=== PATIENT | male | born 1990 | race Caucasian/White ===

== ENCOUNTER 2017-06-19 10:55 | Inpatient (IN) | payer OTHER ==
[2017-06-19 12:43] VITALS: BMI 43.2
--- NOTE | 2017-06-19 13:16 | HP ---
CIWA Score - CIWA Score Nausea/Vomitin Muscle Tremors: 3 Anxiety: 3 Agitation: 3 Paroxysmal Sweats: 2 Orientation: 0-Oriented Tacttile Disturbances: 2-Mild Itch/Numbness/Burn Auditory Disturbances: 2-Mild Harshness/Frighten Visual Disturbances: 1-Very Mild Sensitivity Headache: 2-Mild CIWA-Ar Total Score: 21 Admission ROS BHS - HPI Chief Complaint: I NEED HELP TO STOP DRINKING ALCOHOL Allergies/Adverse Reactions: Allergies Allergy/AdvReac Type Severity Reaction Status Date / Time onion Allergy Verified 06/19/17 13:13 pepper Allergy Verified 06/19/17 13:12 History of Present Illness: THIS 27 YEARS OLD MALE WITH ALCOHOL DEPENDENCE,WITHDRAWAL SYMPTOM,SEEKING DETOX, NEVER BEEN IN TREATMENT BEFORE NO SIGNIFICANT PERIOD OF SOBRIETY ANXIETY AND DEPRESSION Exam Limitations: No Limitations - Ebola screening Have you traveled outside of the country in the last 21 days: No Have you had contact with anyone from an Ebola affected area: No Have you been sick,other than usual withdrawal symptoms: No Do you have a fever: No - Review of Systems Constitutional: Loss of Appetite, Malaise, Night Sweats, Changes in sleep, Weakness EENT: reports: Nose Congestion Respiratory: reports: Other (ASTHMA) Cardiac: reports: No Symptoms Reported GI: reports: Diarrhea, Nausea, Vomiting, Abdominal cramping Musculoskeletal: reports: Back Pain, Muscle Pain Integumentary: reports: Dryness Neuro: reports: Headache, Tremors Endocrine: reports: No Symptoms Reported Hematology: reports: No Symptoms Reported Psychiatric: reports: Anxious, Depressed Patient History - Patient Medical History Hx Anemia: No Hx Asthma: Yes (ON ALBUTEROL INHALER) Hx Chronic Obstructive Pulmonary Disease (COPD): No Hx Cancer: No Hx Cardiac Disorders: No Hx Congestive Heart Failure: No Hx Hypertension: No Hx Hypercholesterolemia: No Hx Pacemaker: No HX Cerebrovascular Accident: No Hx Seizures: No Hx Dementia: No Hx Diabetes: No Hx Gastrointestinal Disorders: No Hx Liver Disease: No Hx Genitourinary Disorders: No Hx Sexually Transmitted Disorders: No Hx Renal Disease (ESRD): No Hx Thyroid Disease: No Hx Human Immunodeficiency Virus (HIV): No (LAST IN 2017 NEGATIVE) Hx Depression: Yes (ANXIETY) Hx Suicide Attempt: No Hx Bipolar Disorder: No Hx Schizophrenia: No Other Medical History: NO SUICIDAL,NO HOMICIDAL,CHRONIC LOW BACK PAIN - Patient Surgical History Past Surgical History: Yes Hx Orthopedic Surgery: Yes (LEFT AKLE FRACTURE AGE OF 14) - PPD History Previous Implant?: Yes Documented Results: Negative w/o proof Implanted On Prior [facility] Admission?: No PPD to be Administered?: Yes - Smoking Cessation Smoking history: Never smoked - Substance & Tx. History Hx Alcohol Use: Yes Hx Substance Use: No Substance Use Type: Alcohol Hx Substance Use Treatment: No - Substances Abused Alcohol Route: Oral Frequency: Daily Amount used: 1PINT OF BLUE AND VODKA/2 OF 24 OZS OF BEER Age of first use: 14 Date of Last Use: 06/18/17 Family Disease History - Family Disease History Family Disease History: Other: Father (ALCOHOL,DSA) Admission Physical Exam [facility] - Vital Signs Vital Signs: Vital Signs - 24 hr 06/19/17 12:42 Temperature 95.6 F L Pulse Rate 86 Respiratory 18 Rate Blood Pressure 123/82 - Physical General Appearance: Yes: Moderate Distress, Tremorous, Irritable, Sweating, Anxious HEENTM: Yes: Normal ENT Inspection, [place], Pharynx Normal Respiratory: Yes: Lungs Clear, Normal Breath Sounds, No Respiratory Distress Neck: Yes: Within Normal Limits Breast: Yes: Within Normal Limits Cardiology: Yes: Within Normal Limits, Regular Rhythm, Regular Rate, S1, S2 Abdominal: Yes: Within Normal Limits, Normal Bowel Sounds, Non Tender, Flat, Soft Genitourinary: Yes: Within Normal Limits Back: Yes: Muscle Spasm Musculoskeletal: Yes: Back pain, Muscle Pain Extremities: Yes: Normal Capillary Refill, Normal Inspection, Normal Range of Motion Neurological: Yes: Within Normal Limits, accessories repairer II-XII NML intact, Fully Oriented, Alert, Motor Strength 5/5 Integumentary: Yes: Dry Lymphatic: Yes: Within Normal Limits - Diagnostic (1) Alcohol dependence with uncomplicated withdrawal Current Visit: Yes Status: Acute (2) Asthma Current Visit: Yes Status: Acute (3) Depression Current Visit: Yes Status: Acute Cleared for Admission [facility] - Detox or Rehab [facility] Level of Care: Medically Managed Detox Regimen/Protocol: Librium [facility] Breath Alcohol Content Breath Alcohol Content: 0 Urine Drug Screen - Results Drug Screen Negative: No Urine Drug Screen Results: OPI-Opiates, BZO-Benzodiazepines, TCA-Tricyclic Antidepress
[2017-06-19] MEDS ORDERED: MENTHOL/PHENOL 1 EACH UD MM PRN (13:28)
[2017-06-19] MEDS ORDERED: P-EPHED 60MG/TRIPROLIDI 2.5MG TABLET PO PRN (13:28)
[2017-06-19] MEDS ORDERED: ACETAMINOPHEN 325 MG TABLET (FP) PO PRN (13:28)
[2017-06-19] MEDS ORDERED: MAG HYDROX/AL HYDROX/SIMETH 30 ML UNIT-DOSE CUP PO PRN (13:28)
[2017-06-19] MEDS ORDERED: MAGNESIUM HYDROX 2400MG/30ML ORAL SUSPENSION 30 ML CUP PO PRN (13:28)
[2017-06-19] MEDS ORDERED: LOPERAMIDE HCL 2 MG CAPSULE PO PRN (13:28)
[2017-06-19] MEDS ORDERED: MAGNESIUM CITRATE 300 ML BOTTLE PO PRN (13:28)
[2017-06-19] MEDS ORDERED: guaiFENesin/D-METHORPHAN HB 10 ML UNIT-DOSE CUPS PO PRN (13:28)
[2017-06-19] MEDS ORDERED: chlordiazePOXIDE HCL 25 MG CAPSULE PO ONE ×2 (13:28→15:45)
[2017-06-19] MEDS ORDERED: chlordiazePOXIDE HCL 25 MG CAPSULE PO PRN (13:28)
[2017-06-19 16:32] LABS: URINE APPEARANCE CLEAR; URINE BILIRUBIN NEGATIVE (NEGATIVE); URINE BLOOD NEGATIVE (NEGATIVE); URINE COLOR YELLOW; URINE GLUCOSE (UA) NEGATIVE (NEGATIVE); URINE KETONE NEGATIVE (NEGATIVE); URINE LEUK ESTERASE NEGATIVE (NEGATIVE); URINE NITRITE NEGATIVE (NEGATIVE); URINE PROTEIN NEGATIVE (NEGATIVE); URINE UROBILINOGEN NEGATIVE mg/dL (0.2-1.0)
[2017-06-19] MEDS: chlordiazePOXIDE HCL 25 MG CAPSULE PO SCH ×2 (17:51→22:05)
[2017-06-19] MEDS: THIAMINE HCL 100 MG TABLET (FP) PO SCH (22:05)
[2017-06-20] MEDS: hydrOXYzine PAMOATE 50 MG CAPSULE (FP) PO PRN ×2 (01:19→16:42)
[2017-06-20] MEDS: chlordiazePOXIDE HCL 25 MG CAPSULE PO SCH ×4 (06:21→22:07)
[2017-06-20 10:00] LABS: HEMATOCRIT 45.1 % (35.4-49); HEMOGLOBIN 14.9 GM/dL (11.7-16.9); MCH 31.6 pg (25.7-33.7); MEAN CELL VOLUME 95.8 fl (80-96); PLATELET COUNT 204 K/MM3 (134-434); RBC 4.71 M/mm3 (4.00-5.60); RDW 13.2 % (11.9-15.9); WHITE BLOOD COUNT 5.4 K/mm3 (4.0-10.0)
[2017-06-20] MEDS: PRENATAL VITAMINS W/ FOLIC ACID TABLET (FP) PO SCH (10:17)
[2017-06-20 10:22] LABS: ALBUMIN 3.1 g/dl (3.4-5.0); ANION GAP 7 (8-16); BLOOD UREA NITROGEN 14 mg/dL (7-18); CALCIUM 7.9 mg/dL (8.5-10.1); CHLORIDE 105 mmol/L (98-107); CO2 27 mmol/L (21-32); GLUCOSE,RANDOM 86 mg/dL (74-106); POTASSIUM 4.2 mmol/L (3.5-5.1); SODIUM 139 mmol/L (136-145)
[2017-06-20 10:25] LABS: ALK PHOS 83 U/L (45-117); BILIRUBIN,TOTAL 0.4 mg/dL (0.2-1.0); CREATININE 0.8 mg/dL (0.7-1.3); SGOT/AST 23 U/L (15-37); SGPT/ALT 67 U/L (12-78); TOT PROT 6.8 g/dl (6.4-8.2)
--- NOTE | 2017-06-20 10:38 | EKG ---
Test Reason : Blood Pressure : / mmHG Vent. Rate : 079 BPM Atrial Rate : 079 BPM P-R Int : 144 ms QRS Dur : 086 ms QT Int : 370 ms P-R-T Axes : 056 023 023 degrees QTc Int : 424 ms NORMAL SINUS RHYTHM NORMAL ECG NO PREVIOUS ECGS AVAILABLE Confirmed by PERRY DE LA FUENTE MD ([id number]) on 06/20/2017 10:38:36 AM Referred By: Confirmed By:PERRY DE LA FUENTE MD
--- NOTE | 2017-06-20 10:48 | PN ---
S CIWA - CIWA Score Nausea/Vomitin Muscle Tremors: 3 Anxiety: 3 Agitation: 3 Paroxysmal Sweats: 1-Minimal Palms Moist Orientation: 0-Oriented Tacttile Disturbances: 1-Very Mild Itch/Numbness Auditory Disturbances: 1-Very Mild Visual Disturbances: 0-None Headache: 2-Mild CIWA-Ar Total Score: 17 BHS Progress Note (SOAP) Subjective: ALERT,IRRITABLE,ANXIOUS,INTERRUPTED SLEEP,TREMOR Objective: 06/20/17 10:46 Vital Signs Temperature 97.2 F L 06/20/17 06:00 Pulse Rate 78 06/20/17 06:00 Respiratory Rate 18 06/20/17 06:00 Blood Pressure 110/64 06/20/17 06:00 O2 Sat by Pulse Oximetry (%) EKG NSR,NORMAL ECG Laboratory Last Values WBC 5.4 K/mm3 (4.0-10.0) 06/20/17 07:30 RBC 4.71 M/mm3 (4.00-5.60) 06/20/17 07:30 Hgb 14.9 GM/dL (11.7-16.9) 06/20/17 07:30 Hct 45.1 % (35.4-49) 06/20/17 07:30 MCV 95.8 fl (80-96) 06/20/17 07:30 MCH 31.6 pg (25.7-33.7) 06/20/17 07:30 MCHC 33.0 g/dl (32.0-35.9) 06/20/17 07:30 RDW 13.2 % (11.9-15.9) 06/20/17 07:30 Plt Count 204 K/MM3 (134-434) 06/20/17 07:30 MPV 8.0 fl (7.5-11.1) 06/20/17 07:30 Sodium 139 mmol/L (136-145) 06/20/17 07:30 Potassium 4.2 mmol/L (3.5-5.1) 06/20/17 07:30 Chloride 105 mmol/L (98-107) 06/20/17 07:30 Carbon Dioxide 27 mmol/L (21-32) 06/20/17 07:30 Anion Gap 7 (8-16) L 06/20/17 07:30 BUN 14 mg/dL (7-18) 06/20/17 07:30 Creatinine 0.8 mg/dL (0.7-1.3) 06/20/17 07:30 Creat Clearance w eGFR > 60 (>60) 06/20/17 07:30 Random Glucose 86 mg/dL (74-106) 06/20/17 07:30 Calcium 7.9 mg/dL (8.5-10.1) L 06/20/17 07:30 Total Bilirubin 0.4 mg/dL (0.2-1.0) 06/20/17 07:30 AST 23 U/L (15-37) 06/20/17 07:30 ALT 67 U/L (12-78) 06/20/17 07:30 Alkaline Phosphatase 83 U/L (45-117) 06/20/17 07:30 Total Protein 6.8 g/dl (6.4-8.2) 06/20/17 07:30 Albumin 3.1 g/dl (3.4-5.0) L 06/20/17 07:30 Urine Color Yellow 06/19/17 15:41 Urine Appearance Clear 06/19/17 15:41 Urine pH 6.0 (5.0-8.0) 06/19/17 15:41 Ur Specific [place] 1.018 (1.001-1.035) 06/19/17 15:41 Urine Protein Negative (NEGATIVE) 06/19/17 15:41 Urine Glucose (UA) Negative (NEGATIVE) 06/19/17 15:41 Urine Ketones Negative (NEGATIVE) 06/19/17 15:41 Urine Blood Negative (NEGATIVE) 06/19/17 15:41 Urine Nitrite Negative (NEGATIVE) 06/19/17 15:41 Urine Bilirubin Negative (NEGATIVE) 06/19/17 15:41 Urine Urobilinogen Negative mg/dL (0.2-1.0) 06/19/17 15:41 Ur Leukocyte Esterase Negative (NEGATIVE) 06/19/17 15:41 06/20/17 10:47 LAB PENDING Assessment: 06/20/17 10:48 WITHDRAWAL SYMPTOM Plan: CONTINUE DETOX
--- NOTE | 2017-06-20 12:31 | CONSULT ---
[facility] Psychiatric Consult - Data Date of interview: 06/20/17 Admission source: [facility] Identifying data: This is 27 years old H single male, father of 2,homeless admitted for Opioid and Alcohol dependence. Substance Abuse History: Patient reports drinking since 14 years old,currently 1 pint of Sheryl daily,TRamadol on and off. Medical History: Psychiatric History: Patient reports some anxiety on and off,specially now related to his current situations (being in detox,breaking up with girlfriend) .He also reports some sleeping difficulties.No previous psychiatric admissions, no suicidal ideas. Physical/Sexual Abuse/Trauma History: denies Mental Status Exam - Mental Status Exam Alert and Oriented to: Time, Place, Person Cognitive Function: Grossly Intact Patient Appearance: Unkempt Mood: Sad Affect: Labile Patient Behavior: Appropriate, Cooperative Speech Pattern: Clear Voice Loudness: Normal Thought Process: Goal Oriented Thought Disorder: Not Present Hallucinations: Denies Suicidal Ideation: Denies Homicidal Ideation: Denies Insight/Judgement: Fair Sleep: Fair Appetite: Fair Muscle strength/Tone: Normal Gait/Station: Normal Psychiatric Findings - Problem List ([place] 1, 2,3) (1) Asthma Current Visit: Yes Status: Chronic (2) Alcohol-induced mood disorder Current Visit: Yes Status: Chronic - Initial Treatment Plan Initial Treatment Plan: Vistaril 50 mg po qid prn for anxiety,Benadryl 100 mg po hs prn for insomnia.
[2017-06-20] MEDS ORDERED: diphenhydrAMINE HCL 50 MG CAPSULE PO PRN (12:40)
[2017-06-20] MEDS: THIAMINE HCL 100 MG TABLET (FP) PO SCH (22:07)
[2017-06-20] MEDS ORDERED: ALBUTEROL SO4 0.083% IH SOL 2.5 MG/3 ML VIAL.NEB. NEB PRN (23:44)
[2017-06-20] MEDS ORDERED: ALBUTEROL SO4 18 GM HFA INHALER IH PRN ×2 (23:45)
[2017-06-21] MEDS: hydrOXYzine PAMOATE 50 MG CAPSULE (FP) PO PRN (01:34)
[2017-06-21] MEDS: chlordiazePOXIDE HCL 25 MG CAPSULE PO SCH ×2 (05:11→10:11)
[2017-06-21] MEDS: BUDESONIDE/FORMETEROL FUMARATE 80/4.5 mcg INHALER IH SCH ×3 (08:20→22:10)
[2017-06-21] MEDS: PRENATAL VITAMINS W/ FOLIC ACID TABLET (FP) PO SCH (10:10)
[2017-06-21] MEDS: IBUPROFEN 400 MG TABLET (FP) PO PRN (11:01)
--- NOTE | 2017-06-21 11:26 | PN ---
S CIWA - CIWA Score Nausea/Vomitin Muscle Tremors: 4-Moderate,w/Arms Extend Anxiety: 3 Agitation: 0-Normal Activity Paroxysmal Sweats: 3 Orientation: 0-Oriented Tacttile Disturbances: 0-None Auditory Disturbances: 0-None Visual Disturbances: 0-None Headache: 0-None Present CIWA-Ar Total Score: 13 BHS Progress Note (SOAP) Subjective: Interrupted sleep, chills / shakes, nausea, sweats Objective: 06/21/17 11:23 Last Vital Signs Temp Pulse Resp BP Pulse Ox 96.8 F L 87 20 127/85 06/21/17 10:12 06/21/17 10:12 06/21/17 10:12 06/21/17 10:12 Laboratory Last Values WBC 5.4 K/mm3 (4.0-10.0) 06/20/17 07:30 RBC 4.71 M/mm3 (4.00-5.60) 06/20/17 07:30 Hgb 14.9 GM/dL (11.7-16.9) 06/20/17 07:30 Hct 45.1 % (35.4-49) 06/20/17 07:30 MCV 95.8 fl (80-96) 06/20/17 07:30 MCH 31.6 pg (25.7-33.7) 06/20/17 07:30 MCHC 33.0 g/dl (32.0-35.9) 06/20/17 07:30 RDW 13.2 % (11.9-15.9) 06/20/17 07:30 Plt Count 204 K/MM3 (134-434) 06/20/17 07:30 MPV 8.0 fl (7.5-11.1) 06/20/17 07:30 Sodium 139 mmol/L (136-145) 06/20/17 07:30 Potassium 4.2 mmol/L (3.5-5.1) 06/20/17 07:30 Chloride 105 mmol/L (98-107) 06/20/17 07:30 Carbon Dioxide 27 mmol/L (21-32) 06/20/17 07:30 Anion Gap 7 (8-16) L 06/20/17 07:30 BUN 14 mg/dL (7-18) 06/20/17 07:30 Creatinine 0.8 mg/dL (0.7-1.3) 06/20/17 07:30 Creat Clearance w eGFR > 60 (>60) 06/20/17 07:30 Random Glucose 86 mg/dL (74-106) 06/20/17 07:30 Calcium 7.9 mg/dL (8.5-10.1) L 06/20/17 07:30 Total Bilirubin 0.4 mg/dL (0.2-1.0) 06/20/17 07:30 AST 23 U/L (15-37) 06/20/17 07:30 ALT 67 U/L (12-78) 06/20/17 07:30 Alkaline Phosphatase 83 U/L (45-117) 06/20/17 07:30 Total Protein 6.8 g/dl (6.4-8.2) 06/20/17 07:30 Albumin 3.1 g/dl (3.4-5.0) L 06/20/17 07:30 Urine Color Yellow 06/19/17 15:41 Urine Appearance Clear 06/19/17 15:41 Urine pH 6.0 (5.0-8.0) 06/19/17 15:41 Ur Specific [place] 1.018 (1.001-1.035) 06/19/17 15:41 Urine Protein Negative (NEGATIVE) 06/19/17 15:41 Urine Glucose (UA) Negative (NEGATIVE) 06/19/17 15:41 Urine Ketones Negative (NEGATIVE) 06/19/17 15:41 Urine Blood Negative (NEGATIVE) 06/19/17 15:41 Urine Nitrite Negative (NEGATIVE) 06/19/17 15:41 Urine Bilirubin Negative (NEGATIVE) 06/19/17 15:41 Urine Urobilinogen Negative mg/dL (0.2-1.0) 06/19/17 15:41 Ur Leukocyte Esterase Negative (NEGATIVE) 06/19/17 15:41 RPR Titer Nonreactive (NONREACTIVE) 06/20/17 07:30 labs noted Assessment: 06/21/17 11:26 withdrawal symptoms Plan: continue detox Increase fluids Continue to monitor
[2017-06-21] MEDS: chlordiazePOXIDE 5 MG CAPSULE PO SCH ×2 (17:32→22:10)
--- NOTE | 2017-06-21 17:38 | PN ---
Psychiatric Progress Note Vital Signs: Vital Signs Period Temp Pulse Resp BP Sys/Patel Pulse Ox Last 24 Hr 96.8 F-97.7 F 82-98 16-20 119-156/72-90 Date of Session: 06/21/17 Chief Complaint:: " Benadryl is not helping me sleep." HPI: Pt is a 27 years single male, father of two ,homeless, and admitted for Opioid and Alcohol dependence. ROS: Unremarkable. Current Medications: Active Medications Generic Name Dose Route Start Last Admin Trade Name Freq PRN Reason Stop Dose Admin Acetaminophen 650 mg 06/19/17 13:28 06/20/17 01:19 Tylenol - PO 650 mg Q4H PRN Administration FEVER Al Hydroxide/Mg Hydroxide 30 ml 06/19/17 13:28 Mylanta Oral Suspension - PO Q6H PRN DYSPEPSIA Albuterol Sulfate 1 amp 06/20/17 23:44 Ventolin 0.083% Nebulizer Soln - NEB Q6H PRN SHORT OF BREATH/WHEEZING Albuterol Sulfate 2 puff 06/20/17 23:45 Ventolin Hfa Inhaler - IH Q4H PRN ASTHMA Budesonide/Formoterol Fumarate 2 puff 06/20/17 23:45 06/21/17 10:11 Symbicort 80/4.5mcg - IH 2 inh BID AUBREE Administration Chlordiazepoxide HCl 15 mg 06/21/17 17:00 06/21/17 17:32 Librium - PO 06/22/17 11:01 15 mg [id number] AUBREE Administration Chlordiazepoxide HCl 25 mg 06/19/17 13:28 Librium - PO 06/22/17 13:27 Q4H PRN WITHDRAWAL(CONT SUBST) Chlordiazepoxide HCl 10 mg 06/22/17 17:00 Librium - PO 06/23/17 11:01 [id number] AUBREE Diphenhydramine HCl 100 mg 06/20/17 12:40 06/20/17 22:07 Benadryl - PO 100 mg DAILY PRN Administration INSOMNIA Eucalyptus/Menthol/Phenol/Sorbitol 1 each 06/19/17 13:28 Cepastat Lozenge - MM Q4H PRN SORE THROAT Guaifenesin 10 ml 06/19/17 13:28 Robitussin Dm - PO Q6H PRN COUGH Hydroxyzine Pamoate 50 mg 06/19/17 13:28 06/21/17 01:34 Vistaril - PO 50 mg Q4H PRN Administration AGITATION Ibuprofen 400 mg 06/19/17 13:28 06/21/17 11:01 Motrin - PO 400 mg Q6H PRN Administration PAIN LEVEL 4-6 Loperamide HCl 4 mg 06/19/17 13:28 Imodium - PO Q6H PRN DIARRHEA Magnesium Citrate 300 ml 06/19/17 13:28 Citroma - PO Q48H PRN CONSTIPATION Magnesium Hydroxide 30 ml 06/19/17 13:28 Milk Of Magnesia - PO DAILY PRN CONSTIPATION Multivit/Folic Acid/Iron 1 tab 06/20/17 10:00 06/21/17 10:10 Vitamins (Sjr) - PO 1 tab DAILY AUBREE Administration Pseudoephedrine/Triprolidine 1 combo 06/19/17 13:28 Actifed - PO TID PRN NASAL CONGESTION Thiamine HCl 100 mg 06/19/17 22:00 06/20/17 22:07 Vitamin B1 - PO 100 mg HS AUBREE Administration Medication(s) Change(s): Yes. Ambien 10mg qhs PRN. D/C benadryl 100mg prn Current Side Effect: No Lab tests ordered: No Lab tests reviewed: Yes Provider note:: Industrial Safety And Health Technician approached patient concering psychiatric reconsultation. Pt. requesting a different sleep aid. Stating benadryl 100mg has not improved his insomnia. Pt. reports favorable effect from previously taking ambien Ambien 10mg. Ambien 10mg qhs prn ordered. Benefits and side effects (sleep walking) discussed. Verbal consent given. Will continue to monitor. Total face to face time:: 15 Mental Status Exam - Mental Status Exam Alert and Oriented to: Time, Place, Person Cognitive Function: Good Patient Appearance: Unkempt Mood: Hopeful Affect: Mood Congruent Patient Behavior: Appropriate, Cooperative Speech Pattern: Appropriate Voice Loudness: Normal Thought Process: Goal Oriented Thought Disorder: Not Present Hallucinations: Denies Suicidal Ideation: Denies Homicidal Ideation: Denies Insight/Judgement: Poor Sleep: Poorly Appetite: Good Muscle strength/Tone: Normal Gait/Station: Normal Psychiatric Treatment Plan - Problem List (1) Alcohol dependence with uncomplicated withdrawal Current Visit: Yes (2) Insomnia Current Visit: Yes
[2017-06-21] MEDS: ZOLPIDEM TARTRATE 10 MG TABLET (PARK CARE ONLY) PO PRN (22:10)
[2017-06-21] MEDS: THIAMINE HCL 100 MG TABLET (FP) PO SCH (22:10)
[2017-06-22] MEDS: hydrOXYzine PAMOATE 50 MG CAPSULE (FP) PO PRN ×2 (02:06→12:29)
[2017-06-22] MEDS: chlordiazePOXIDE 5 MG CAPSULE PO SCH ×2 (05:26→10:12)
--- NOTE | 2017-06-22 09:52 | PN ---
BHS Progress Note (SOAP) Subjective: interrupted sleep, sweats, lbp Objective: 06/22/17 09:48 Vital Signs Temperature 97.5 F L 06/22/17 07:02 Pulse Rate 87 06/22/17 07:02 Respiratory Rate 06/22/17 07:02 Blood Pressure 120/71 06/22/17 07:02 O2 Sat by Pulse Oximetry (%) Vital Signs Temperature 97.5 F L 06/22/17 07:02 Pulse Rate 87 06/22/17 07:02 Respiratory Rate 06/22/17 07:02 Blood Pressure 120/71 06/22/17 07:02 O2 Sat by Pulse Oximetry (%) Laboratory Tests 06/19/17 06/20/17 06/20/17 15:41 07:30 07:30 WBC 5.4 RBC 4.71 Hgb 14.9 Hct 45.1 MCV 95.8 MCH 31.6 MCHC 33.0 RDW 13.2 Plt Count 204 MPV 8.0 Sodium 139 Potassium 4.2 Chloride 105 Carbon Dioxide 27 Anion Gap 7 L BUN 14 Creatinine 0.8 Creat Clearance w eGFR > 60 Random Glucose 86 Calcium 7.9 L Total Bilirubin 0.4 AST 23 ALT 67 Alkaline Phosphatase 83 Total Protein 6.8 Albumin 3.1 L Urine Color Yellow Urine Appearance Clear Urine pH 6.0 Ur Specific [place] 1.018 Urine Protein Negative Urine Glucose (UA) Negative Urine Ketones Negative Urine Blood Negative Urine Nitrite Negative Urine Bilirubin Negative Urine Urobilinogen Negative Ur Leukocyte Esterase Negative RPR Titer 06/20/17 07:30 WBC RBC Hgb Hct MCV MCH MCHC RDW Plt Count MPV Sodium Potassium Chloride Carbon Dioxide Anion Gap BUN Creatinine Creat Clearance w eGFR Random Glucose Calcium Total Bilirubin AST ALT Alkaline Phosphatase Total Protein Albumin Urine Color Urine Appearance Urine pH Ur Specific [place] Urine Protein Urine Glucose (UA) Urine Ketones Urine Blood Urine Nitrite Urine Bilirubin Urine Urobilinogen Ur Leukocyte Esterase RPR Titer Nonreactive pt aox3 in nad ambulating Assessment: 06/22/17 09:51 withdrawal sxs Plan: cont detox increase fluids d/c in am
[2017-06-22] MEDS: PRENATAL VITAMINS W/ FOLIC ACID TABLET (FP) PO SCH (10:12)
[2017-06-22] MEDS: BUDESONIDE/FORMETEROL FUMARATE 80/4.5 mcg INHALER IH SCH ×2 (10:12→22:22)
[2017-06-22] MEDS: IBUPROFEN 400 MG TABLET (FP) PO PRN (12:30)
[2017-06-22] MEDS: chlordiazePOXIDE HCL 10 MG CAPSULE PO SCH ×2 (17:36→22:13)
[2017-06-22] MEDS: THIAMINE HCL 100 MG TABLET (FP) PO SCH (22:13)
[2017-06-22] MEDS: ZOLPIDEM TARTRATE 10 MG TABLET (PARK CARE ONLY) PO PRN (22:15)
[2017-06-23] MEDS: hydrOXYzine PAMOATE 50 MG CAPSULE (FP) PO PRN (01:47)
[2017-06-23 06:12] VITALS: BP 105/59; PULSE 80; TEMP 97.7
[2017-06-23] MEDS: chlordiazePOXIDE HCL 10 MG CAPSULE PO SCH (06:24)
--- NOTE | 2017-06-23 08:43 | DS ---
[facility] Detox Discharge Summary Admission Date: 06/19/17 Discharge Date: 06/23/17 - History Present History: Alcohol Dependence - Physical Exam Results Vital Signs: Vital Signs Temperature 97.7 F 06/23/17 06:00 Pulse Rate 80 06/23/17 06:00 Respiratory Rate 20 06/23/17 06:00 Blood Pressure 105/59 06/23/17 06:00 O2 Sat by Pulse Oximetry (%) - Treatment Hospital Course: Detox Protocol Followed, Detoxed Safely, Responded well, Discharged Condition Good, Rehab Referral Accepted - Medication Discharge Medications: Ambulatory Orders Albuterol Sulfate Inhaler - [Ventolin Hfa Inhaler -] 2 inh PO Q6H 06/19/17 Fluticasone/Salmeterol [Advair 250-50 Diskus] 1 each IH DAILY 06/19/17 Hydroxyzine Pamoate [Vistaril -] 50 mg PO PRN 06/19/17 - Diagnosis (1) Depression Current Visit: Yes Status: Acute (2) Insomnia Current Visit: Yes Status: Acute (3) Alcohol dependence with uncomplicated withdrawal Current Visit: Yes Status: Chronic (4) Alcohol-induced mood disorder Current Visit: Yes Status: Chronic (5) Asthma Current Visit: Yes Status: Chronic - AMA Did Patient Leave Against Medical Advice: No
== END 2017-06-23 09:22 | disposition home or self-care (01) | DRG 775 ==
LOC: YASAS 10:55 → Y6N 14:15
PROVIDERS: ADMIT Internal Medicine; ATTEND Internal Medicine
PROC: HZ2ZZZZ Detoxification Services for Substance Abuse Treatment (ICD-10-PCS; principal; 2017-06-19)
DX: F10.230 Alcohol dependence with withdrawal, uncomplicated (principal); F10.24 Alcohol dependence with alcohol-induced mood disorder; F32.9 Major depressive disorder, single episode, unspecified; J45.909 Unspecified asthma, uncomplicated; G47.00 Insomnia, unspecified
CPT/HCPCS: 36415; 80053; 81003; 85027; 86593; 93005; 93010

== ENCOUNTER 2017-09-09 10:31 | Inpatient (IN) | payer OTHER ==
[2017-09-09 12:54] VITALS: BMI 46.9
--- NOTE | 2017-09-09 13:51 | HP ---
CIWA Score - CIWA Score Nausea/Vomitin Muscle Tremors: 3 Anxiety: 3 Agitation: 3 Paroxysmal Sweats: 2 Orientation: 0-Oriented Tacttile Disturbances: 1-Very Mild Itch/Numbness Auditory Disturbances: 1-Very Mild Visual Disturbances: 2-Mild Sensitivity Headache: 2-Mild CIWA-Ar Total Score: 20 Admission ROS BHS - HPI Chief Complaint: I NEED HELP TO STOP DRINKING ALCOHOL,XANAX,HEROIN SEEKING DETOX,WITHDRAWAL SYMPTOM,LAST DETOX , Allergies/Adverse Reactions: Allergies Allergy/AdvReac Type Severity Reaction Status Date / Time onion Allergy Verified 09/09/17 13:37 pepper (genus Capsicum) Allergy Verified 09/09/17 13:37 [pepper] History of Present Illness: THIS 27 YEARS OLD MALE WITH ALCOHOL DEPENDENCE,HEROIN AND XANAX DEPENDENCE, SEEKING DETOX,WITHDRAWAL SYMPTOM, LAST DETOX [facility] 06/19/17 TO 06/23/17 NO SIGNIFICANT PERIOD OF SOBRIETY ASTHMA NICOTINE DEPENDENCE Exam Limitations: No Limitations - Ebola screening Have you traveled outside of the country in the last 21 days: No Have you had contact with anyone from an Ebola affected area: No Have you been sick,other than usual withdrawal symptoms: No Do you have a fever: No - Review of Systems Constitutional: Diaphoresis, Loss of Appetite, Night Sweats, Weakness EENT: reports: Nose Congestion Respiratory: reports: No Symptoms reported, Other (ASTHMA) Cardiac: reports: Palpitations GI: reports: Diarrhea, Nausea, Vomiting, Abdominal cramping : reports: No Symptoms Reported Musculoskeletal: reports: Back Pain, Muscle Pain Integumentary: reports: Dryness Neuro: reports: Headache, Tremors Endocrine: reports: No Symptoms Reported Hematology: reports: No Symptoms Reported Psychiatric: reports: No Sypmtoms Reported, Judgement Intact, Mood/Affect Appropiate, Orientated x3 (INSOMNIA), Anxious, Depressed Patient History - Patient Medical History Hx Anemia: No Hx Asthma: Yes (Pt is on MDI for asthma.) Hx Chronic Obstructive Pulmonary Disease (COPD): No Hx Cancer: No Hx Cardiac Disorders: No Hx Congestive Heart Failure: No Hx Hypertension: No Hx Hypercholesterolemia: No Hx Pacemaker: No HX Cerebrovascular Accident: No Hx Seizures: No Hx Dementia: No Hx Diabetes: No Hx Gastrointestinal Disorders: No Hx Liver Disease: No Hx Genitourinary Disorders: No Hx Sexually Transmitted Disorders: No Hx Renal Disease (ESRD): No Hx Thyroid Disease: No Hx Human Immunodeficiency Virus (HIV): No (LAST IN 2017 NEGATIVE) Hx Hepatitis C: No Hx Depression: No Hx Suicide Attempt: No Hx Bipolar Disorder: No Hx Schizophrenia: No Other Medical History: NO SUICIDAL,NO HOMICIDAL - Patient Surgical History Past Surgical History: Yes Hx Neurologic Surgery: No Hx Cataract Extraction: No Hx Cardiac Surgery: No Hx Lung Surgery: No Hx Breast Surgery: No Hx Breast Biopsy: No Hx Abdominal Surgery: No Hx Appendectomy: No Hx Cholecystectomy: No Hx Genitourinary Surgery: No Hx Section: No Hx Orthopedic Surgery: Yes (LEFT ANKLE FRACTURE AGE OF 14) - PPD History Previous Implant?: Yes Documented Results: Negative w/proof Implanted On Prior [facility] Admission?: Yes Date: 06/21/17 Results: 0 mm PPD to be Administered?: No - Smoking Cessation Smoking history: Current every day smoker Have you smoked in the past 12 months: Yes Aproximately how many cigarettes per day: 20 Hx Chewing Tobacco Use: No Initiated information on smoking cessation: Yes 'Breaking Loose' booklet given: 09/09/17 - Substance & Tx. History Hx Alcohol Use: Yes Hx Substance Use: Yes Substance Use Type: Alcohol, Heroin, Tranquilizers - Substances Abused Heroin Route: Inhalation Frequency: 1-3 times last 30 days Amount used: 2 BAGS Age of first use: 19 Date of Last Use: 09/02/17 Alcohol Route: Oral Frequency: Daily Amount used: 1 AND 1/2 PINT WHISKEY/6PK BEERS Age of first use: 13 Date of Last Use: 09/09/17 Alprazolam (Xanax) Route: Oral Frequency: 3-6 times per week Amount used: 2MG Age of first use: 15 Date of Last Use: 09/09/17 Family Disease History - Family Disease History Family Disease History: Other: Father (ALCOHOL,DSA) Admission Physical Exam S - Vital Signs Vital Signs: Vital Signs - 24 hr 09/09/17 12:50 Temperature 97.9 F Pulse Rate 115 H Respiratory 20 Rate Blood Pressure 149/76 - Physical General Appearance: Yes: Moderate Distress, Tremorous, Irritable, Sweating, Anxious HEENTM: Yes: Normal ENT Inspection, [place], Pharynx Normal Respiratory: Yes: Lungs Clear, Normal Breath Sounds, No Respiratory Distress Neck: Yes: Within Normal Limits, Supple, Trachea in good position Breast: Yes: Within Normal Limits Cardiology: Yes: Tachycardia Abdominal: Yes: Normal Bowel Sounds, Non Tender, Flat, Soft Genitourinary: Yes: Within Normal Limits Back: Yes: Normal Inspection, Muscle Spasm Musculoskeletal: Yes: full range of Motion, Back pain, Muscle Pain Extremities: Yes: Normal Range of Motion, Tremors Neurological: Yes: wash plant operator II-XII NML intact, Fully Oriented, Alert, Motor Strength 5/5 Integumentary: Yes: Dry Lymphatic: Yes: Within Normal Limits - Diagnostic (1) Alcohol dependence with uncomplicated withdrawal Current Visit: No Status: Chronic (2) Asthma Current Visit: No Status: Chronic (3) Insomnia secondary to depression with anxiety Current Visit: Yes Status: Acute (4) Nicotine dependence Current Visit: Yes Status: Acute (5) Insomnia secondary to depression with anxiety Current Visit: Yes Status: Acute Cleared for Admission [facility] - Detox or Rehab [facility] Level of Care: Medically Managed (URINE FOR DRUG SCREENING IS NEGATIVE) Detox Regimen/Protocol: Librium [facility] Breath Alcohol Content Breath Alcohol Content: 0.029 Urine Drug Screen - Results Drug Screen Negative: Yes
[2017-09-09] MEDS ORDERED: ACETAMINOPHEN 325 MG TABLET (FP) PO PRN (14:05)
[2017-09-09] MEDS ORDERED: P-EPHED 60MG/TRIPROLIDI 2.5MG TABLET PO PRN (14:05)
[2017-09-09] MEDS ORDERED: MAGNESIUM HYDROX 2400MG/30ML ORAL SUSPENSION 30 ML CUP PO PRN (14:05)
[2017-09-09] MEDS ORDERED: MENTHOL/PHENOL 1 EACH UD MM PRN (14:05)
[2017-09-09] MEDS ORDERED: NICOTINE POLACRILEX 2 MG GUM BUC PRN (14:05)
[2017-09-09] MEDS ORDERED: MAG HYDROX/AL HYDROX/SIMETH 30 ML UNIT-DOSE CUP PO PRN (14:05)
[2017-09-09] MEDS ORDERED: LOPERAMIDE HCL 2 MG CAPSULE PO PRN (14:05)
[2017-09-09] MEDS ORDERED: MAGNESIUM CITRATE 300 ML BOTTLE PO PRN (14:05)
[2017-09-09] MEDS ORDERED: guaiFENesin/D-METHORPHAN HB 10 ML UNIT-DOSE CUPS PO PRN (14:05)
[2017-09-09] MEDS ORDERED: IBUPROFEN 400 MG TABLET (FP) PO PRN (14:05)
[2017-09-09] MEDS ORDERED: chlordiazePOXIDE HCL 25 MG CAPSULE PO PRN (14:05)
[2017-09-09] MEDS ORDERED: CYCLOBENZAPRINE HCL 10 MG TABLET (FP) PO PRN (14:11)
[2017-09-09] MEDS ORDERED: chlordiazePOXIDE HCL 25 MG CAPSULE PO ONE (14:55)
--- NOTE | 2017-09-09 16:04 | EKG ---
Test Reason : Blood Pressure : / mmHG Vent. Rate : 101 BPM Atrial Rate : 101 BPM P-R Int : 146 ms QRS Dur : 086 ms QT Int : 348 ms P-R-T Axes : 058 042 039 degrees QTc Int : 451 ms SINUS TACHYCARDIA OTHERWISE NORMAL ECG WHEN COMPARED WITH ECG OF 19-JUN-2017 16:05, NO SIGNIFICANT CHANGE WAS FOUND Confirmed by ABI TORRES MD ([id number]) on 09/09/2017 4:03:36 PM Referred By: Confirmed By:ABI TORRES MD
--- NOTE | 2017-09-09 16:29 | CONSULT ---
[facility] Psychiatric Consult - Data Date of interview: 09/09/17 Admission source: [facility] Identifying data: Readmission to [facility] for this 27 y/o male seeking detox treatment on for alcohol,xanax and opioid dependence.Patient is single,a father of two,homeless,unemployed and supported on food stamps. Substance Abuse History: Confirmed by patient in this interview.Details in current [facility] report : Smoking history: Current every day smoker. Have you smoked in the past 12 months: Yes. Aproximately how many cigarettes per day: 20. Hx Chewing Tobacco Use: No. Initiated information on smoking cessation: Yes. 'Breaking Loose' booklet given: 09/09/17. - Substance & Tx. History. Hx Alcohol Use: Yes. Hx Substance Use: Yes. Substance Use Type: Alcohol, Heroin, Tranquilizers. - Substances Abused. Heroin. Route: Inhalation. Frequency : 1-3 times last 30 days. Amount used: 2 BAGS. Age of first use: 19. Date of Last Use: 09/02/17. Alcohol. Route: Oral. Frequency: Daily. Amount used: 1 AND 1/2 [place]/6PK BEERS. Age of first use: 13. Date of Last Use: 11/21. Alprazolam (Xanax). Route: Oral. Frequency: 3-6 times per week. Amount used: 2MG. Age of first use: 15. Date of Last Use: 09/09/17 Medical History: Bronchial asthma. Psychiatric History: Patient admits to a history of two psychiatric hospitalizations at [facility] (during adolescence) and more recently at [facility].Diagnosed with MDD and Anxiety Disorder as per self- report.Mr Barrios declares that he is not currently on prescribed psychotropic medications (no OPD care for months if not years).Patient denies history of suicide attempts. Physical/Sexual Abuse/Trauma History: Patient denies. Additional Comment: Drug Screen is negative. Mental Status Exam - Mental Status Exam Alert and Oriented to: Time, Place, Person Cognitive Function: Good Patient Appearance: Well Groomed (obese ; tattoos on both forearms) Mood: Nervous, Withdrawn Affect: Mood Congruent Patient Behavior: Fatigued, Cooperative Speech Pattern: Clear, Appropriate Voice Loudness: Normal Thought Process: Intact, Goal Oriented Thought Disorder: Not Present Hallucinations: Denies Suicidal Ideation: Denies Homicidal Ideation: Denies Insight/Judgement: Poor Sleep: Poorly, Difficulty falling asleep Appetite: Good Muscle strength/Tone: Normal Gait/Station: Normal Psychiatric Findings - Problem List ([place] 1, 2,3) (1) Alcohol dependence with uncomplicated withdrawal Current Visit: Yes Status: Acute (2) Nicotine dependence Current Visit: Yes Status: Acute (3) Insomnia Current Visit: Yes Status: Acute - Initial Treatment Plan Initial Treatment Plan: Psychoeducation.Orientation to the unit.Sleep hygiene.Detoxification initiated.Insomnia is addressed with trazodone 50 mg po hs (patient's specific request).Patient is made aware of the risk of parasomnias (sleep-walking).Consent (verbal) obtained from patient.Observation.
[2017-09-09] MEDS: chlordiazePOXIDE HCL 25 MG CAPSULE PO SCH ×2 (17:27→22:04)
[2017-09-09] MEDS: ALBUTEROL SO4 18 GM HFA INHALER IH PRN (21:27)
[2017-09-09] MEDS ORDERED: MELATONIN 5 MG TABLETS PO PRN (22:00)
[2017-09-09] MEDS: BUDESONIDE/FORMETEROL FUMARATE 160/4.5 mcg INHALER IH SCH (22:04)
[2017-09-09] MEDS: THIAMINE HCL 100 MG TABLET (FP) PO SCH (22:04)
[2017-09-09] MEDS: cloNIDine HCL 0.1 MG TABLET PO SCH (22:05)
[2017-09-09] MEDS: traZODone HCL 50 MG TABLET (FP) PO SCH (23:26)
[2017-09-10] MEDS: chlordiazePOXIDE HCL 25 MG CAPSULE PO SCH ×4 (05:40→22:47)
[2017-09-10] MEDS: ALBUTEROL SO4 18 GM HFA INHALER IH PRN ×3 (05:46→22:48)
[2017-09-10] MEDS: cloNIDine HCL 0.1 MG TABLET PO SCH ×2 (10:35→22:47)
[2017-09-10] MEDS: PRENATAL VITAMINS W/ FOLIC ACID TABLET (FP) PO SCH (10:35)
[2017-09-10] MEDS: BUDESONIDE/FORMETEROL FUMARATE 160/4.5 mcg INHALER IH SCH ×2 (10:35→22:48)
[2017-09-10 11:16] LABS: URINE APPEARANCE CLEAR; URINE BILIRUBIN NEGATIVE (<2.0 mg/dL); URINE BLOOD NEGATIVE (NEGATIVE); URINE COLOR LTYELLOW; URINE GLUCOSE (UA) NEGATIVE (NEGATIVE); URINE KETONE NEGATIVE (NEGATIVE); URINE LEUK ESTERASE NEGATIVE (NEGATIVE); URINE NITRITE NEGATIVE (NEGATIVE); URINE PROTEIN NEGATIVE (NEGATIVE); URINE UROBILINOGEN NEGATIVE mg/dL (0.2-1.0)
[2017-09-10 11:23] LABS: HEMATOCRIT 44.5 % (35.4-49); MCH 32.3 pg (25.7-33.7); MCHC 33.8 g/dl (32.0-35.9); MEAN CELL VOLUME 95.7 fl (80-96); MEAN PLT VOLUME 9.3 fl (7.5-11.1); PLATELET COUNT 228 K/MM3 (134-434); RBC 4.65 M/mm3 (4.00-5.60); RDW 12.7 % (11.9-15.9); WHITE BLOOD COUNT 6.4 K/mm3 (4.0-10.0)
[2017-09-10 12:06] LABS: ALBUMIN 3.8 g/dl (3.4-5.0); ALK PHOS 82 U/L (45-117); ANION GAP 10 (8-16); BILIRUBIN,TOTAL 0.2 mg/dL (0.2-1.0); BLOOD UREA NITROGEN 14 mg/dL (7-18); CALCIUM 8.7 mg/dL (8.5-10.1); CHLORIDE 106 mmol/L (98-107); CO2 23 mmol/L (21-32); CREATININE 0.9 mg/dL (0.7-1.3); GLUCOSE,RANDOM 137 mg/dL (74-106); POTASSIUM 4.2 mmol/L (3.5-5.1); SGOT/AST 22 U/L (15-37); SGPT/ALT 47 U/L (12-78); SODIUM 139 mmol/L (136-145); TOT PROT 7.9 g/dl (6.4-8.2)
--- NOTE | 2017-09-10 15:04 | PN ---
[facility] CIWA - CIWA Score Nausea/Vomitin-No Nausea/No Vomiting Muscle Tremors: 2 Anxiety: 4-Mod. Anxious/Guarded Agitation: 3 Paroxysmal Sweats: 3 Orientation: 0-Oriented Tacttile Disturbances: 3-Moderate Itch/Numb/Burn Auditory Disturbances: 2-Mild Harshness/Frighten Visual Disturbances: 0-None Headache: 0-None Present CIWA-Ar Total Score: 17 [facility] Progress Note (SOAP) Subjective: Sweating, Interrupted Sleep, Anxious. Objective: PATIENT A & O X 3. NO ACUTE DISTRESS. 09/10/17 15:04 Vital Signs Temperature 96.6 F L 09/10/17 13:17 Pulse Rate 81 09/10/17 13:17 Respiratory Rate 20 09/10/17 13:17 Blood Pressure 112/63 09/10/17 13:17 O2 Sat by Pulse Oximetry (%) Laboratory Tests 09/10/17 09/10/17 09/10/17 06:00 06:00 08:00 WBC 6.4 RBC 4.65 Hgb 15.0 Hct 44.5 MCV 95.7 MCH 32.3 MCHC 33.8 RDW 12.7 Plt Count 228 MPV 9.3 D Sodium 139 Potassium 4.2 Chloride 106 Carbon Dioxide 23 Anion Gap 10 BUN 14 Creatinine 0.9 Creat Clearance w eGFR > 60 Random Glucose 137 H D Calcium 8.7 Total Bilirubin 0.2 D AST 22 ALT 47 D Alkaline Phosphatase 82 Total Protein 7.9 Albumin 3.8 D Urine Color Ltyellow Urine Appearance Clear Urine pH 5.0 Ur Specific [place] 1.016 Urine Protein Negative Urine Glucose (UA) Negative Urine Ketones Negative Urine Blood Negative Urine Nitrite Negative Urine Bilirubin Negative Urine Urobilinogen Negative Ur Leukocyte Esterase Negative LABS NOTED. RPR RESULT PENDING. 09/10/17 15:06 Assessment: 09/10/17 15:05 WITHDRAWAL SYMPTOMS. Plan: CONTINUE DETOX. INCREASE DAILY PO FLUID INTAKE. BGM ACBK FOR ELEVATED ADMISSION RANDOM GLUCOSE LEVEL.
[2017-09-10] MEDS: THIAMINE HCL 100 MG TABLET (FP) PO SCH (22:46)
[2017-09-10] MEDS: traZODone HCL 50 MG TABLET (FP) PO SCH (22:47)
[2017-09-11] MEDS: chlordiazePOXIDE HCL 25 MG CAPSULE PO SCH ×2 (05:48→10:41)
[2017-09-11] MEDS: cloNIDine HCL 0.1 MG TABLET PO SCH ×2 (10:41→22:35)
[2017-09-11] MEDS: BUDESONIDE/FORMETEROL FUMARATE 160/4.5 mcg INHALER IH SCH ×2 (10:41→22:36)
[2017-09-11] MEDS: PRENATAL VITAMINS W/ FOLIC ACID TABLET (FP) PO SCH (10:41)
--- NOTE | 2017-09-11 16:34 | PN ---
[facility] CIWA - CIWA Score Nausea/Vomitin Muscle Tremors: 3 Anxiety: 3 Agitation: 3 Paroxysmal Sweats: 3 Orientation: 0-Oriented Tacttile Disturbances: 1-Very Mild Itch/Numbness Auditory Disturbances: 0-None Visual Disturbances: 0-None Headache: 1-Very Mild CIWA-Ar Total Score: 17 [facility] Progress Note (SOAP) Subjective: Weakness, sweating, interrupted sleep Objective: 09/11/17 16:32 Last Vital Signs Temp Pulse Resp BP Pulse Ox 98.1 F 117 H 18 112/73 09/11/17 14:38 09/11/17 14:38 09/11/17 14:38 09/11/17 14:38 Laboratory Tests 09/10/17 09/10/17 09/10/17 06:00 06:00 06:00 WBC 6.4 RBC 4.65 Hgb 15.0 Hct 44.5 MCV 95.7 MCH 32.3 MCHC 33.8 RDW 12.7 Plt Count 228 MPV 9.3 D Sodium 139 Potassium 4.2 Chloride 106 Carbon Dioxide 23 Anion Gap 10 BUN 14 Creatinine 0.9 Creat Clearance w eGFR > 60 POC Glucometer Random Glucose 137 H D Calcium 8.7 Total Bilirubin 0.2 D AST 22 ALT 47 D Alkaline Phosphatase 82 Total Protein 7.9 Albumin 3.8 D Urine Color Urine Appearance Urine pH Ur Specific [place] Urine Protein Urine Glucose (UA) Urine Ketones Urine Blood Urine Nitrite Urine Bilirubin Urine Urobilinogen Ur Leukocyte Esterase RPR Titer Nonreactive 09/10/17 09/11/17 08:00 05:46 WBC RBC Hgb Hct MCV MCH MCHC RDW Plt Count MPV Sodium Potassium Chloride Carbon Dioxide Anion Gap BUN Creatinine Creat Clearance w eGFR POC Glucometer 111 Random Glucose Calcium Total Bilirubin AST ALT Alkaline Phosphatase Total Protein Albumin Urine Color Ltyellow Urine Appearance Clear Urine pH 5.0 Ur Specific [place] 1.016 Urine Protein Negative Urine Glucose (UA) Negative Urine Ketones Negative Urine Blood Negative Urine Nitrite Negative Urine Bilirubin Negative Urine Urobilinogen Negative Ur Leukocyte Esterase Negative RPR Titer Labs reviewed Assessment: 09/11/17 16:33 Withdrawal symptoms Plan: Continue detox Encouraged to drink more water for hydration
[2017-09-11] MEDS: chlordiazePOXIDE 5 MG CAPSULE PO SCH ×2 (17:45→22:36)
[2017-09-11] MEDS: THIAMINE HCL 100 MG TABLET (FP) PO SCH (22:36)
[2017-09-11] MEDS: traZODone HCL 50 MG TABLET (FP) PO SCH (22:36)
[2017-09-12] MEDS: hydrOXYzine PAMOATE 50 MG CAPSULE (FP) PO PRN ×2 (02:48→22:06)
[2017-09-12] MEDS: chlordiazePOXIDE 5 MG CAPSULE PO SCH ×2 (06:07→10:31)
[2017-09-12] MEDS: PRENATAL VITAMINS W/ FOLIC ACID TABLET (FP) PO SCH (10:31)
[2017-09-12] MEDS: cloNIDine HCL 0.1 MG TABLET PO SCH ×2 (10:31→22:06)
[2017-09-12] MEDS: BUDESONIDE/FORMETEROL FUMARATE 160/4.5 mcg INHALER IH SCH ×2 (10:32→22:06)
--- NOTE | 2017-09-12 12:05 | PN ---
[facility] Progress Note (SOAP) Subjective: BODY ACHES,ANXIETY,TREMORS,INTERMITTENT SLEEP. Objective: 09/12/17 12:05 Vital Signs Temperature 96.0 F L 09/12/17 09:34 Pulse Rate 87 09/12/17 09:34 Respiratory Rate 20 09/12/17 09:34 Blood Pressure 117/87 09/12/17 09:34 O2 Sat by Pulse Oximetry (%) Laboratory Last Values WBC 6.4 K/mm3 (4.0-10.0) 09/10/17 06:00 RBC 4.65 M/mm3 (4.00-5.60) 09/10/17 06:00 Hgb 15.0 GM/dL (11.7-16.9) 09/10/17 06:00 Hct 44.5 % (35.4-49) 09/10/17 06:00 MCV 95.7 fl (80-96) 09/10/17 06:00 MCH 32.3 pg (25.7-33.7) 09/10/17 06:00 MCHC 33.8 g/dl (32.0-35.9) 09/10/17 06:00 RDW 12.7 % (11.9-15.9) 09/10/17 06:00 Plt Count 228 K/MM3 (134-434) 09/10/17 06:00 MPV 9.3 fl (7.5-11.1) D 09/10/17 06:00 Sodium 139 mmol/L (136-145) 09/10/17 06:00 Potassium 4.2 mmol/L (3.5-5.1) 09/10/17 06:00 Chloride 106 mmol/L (98-107) 09/10/17 06:00 Carbon Dioxide 23 mmol/L (21-32) 09/10/17 06:00 Anion Gap 10 (8-16) 09/10/17 06:00 BUN 14 mg/dL (7-18) 09/10/17 06:00 Creatinine 0.9 mg/dL (0.7-1.3) 09/10/17 06:00 Creat Clearance w eGFR > 60 (>60) 09/10/17 06:00 POC Glucometer 132 UNITS (80-120) 09/12/17 06:09 Random Glucose 137 mg/dL (74-106) H D 09/10/17 06:00 Calcium 8.7 mg/dL (8.5-10.1) 09/10/17 06:00 Total Bilirubin 0.2 mg/dL (0.2-1.0) D 09/10/17 06:00 AST 22 U/L (15-37) 09/10/17 06:00 ALT 47 U/L (12-78) D 09/10/17 06:00 Alkaline Phosphatase 82 U/L (45-117) 09/10/17 06:00 Total Protein 7.9 g/dl (6.4-8.2) 09/10/17 06:00 Albumin 3.8 g/dl (3.4-5.0) D 09/10/17 06:00 Urine Color Ltyellow 09/10/17 08:00 Urine Appearance Clear 09/10/17 08:00 Urine pH 5.0 (5.0-8.0) 09/10/17 08:00 Ur Specific [place] 1.016 (1.001-1.035) 09/10/17 08:00 Urine Protein Negative (NEGATIVE) 09/10/17 08:00 Urine Glucose (UA) Negative (NEGATIVE) 09/10/17 08:00 Urine Ketones Negative (NEGATIVE) 09/10/17 08:00 Urine Blood Negative (NEGATIVE) 09/10/17 08:00 Urine Nitrite Negative (NEGATIVE) 09/10/17 08:00 Urine Bilirubin Negative (<2.0 mg/dL) 09/10/17 08:00 Urine Urobilinogen Negative mg/dL (0.2-1.0) 09/10/17 08:00 Ur Leukocyte Esterase Negative (NEGATIVE) 09/10/17 08:00 RPR Titer Nonreactive (NONREACTIVE) 09/10/17 06:00 Assessment: 09/12/17 12:05 WITHDRAWAL SX Plan: CONTINUE DETOX
[2017-09-12] MEDS: chlordiazePOXIDE HCL 10 MG CAPSULE PO SCH ×2 (18:06→22:06)
[2017-09-12] MEDS: THIAMINE HCL 100 MG TABLET (FP) PO SCH (22:06)
[2017-09-12] MEDS: traZODone HCL 50 MG TABLET (FP) PO SCH (22:06)
[2017-09-12] MEDS: ALBUTEROL SO4 18 GM HFA INHALER IH PRN (23:36)
[2017-09-13] MEDS: chlordiazePOXIDE HCL 10 MG CAPSULE PO SCH ×2 (06:18→11:25)
--- NOTE | 2017-09-13 08:45 | DS ---
[facility] Detox Discharge Summary Admission Date: 09/09/17 Discharge Date: 09/13/17 - History Present History: Alcohol Dependence Additional Comments: DETOX COMPLETED. Pertinent Past History: PLEASE SEE DX BELOW - Physical Exam Results Vital Signs: Vital Signs Temperature 97.7 F 09/13/17 06:29 Pulse Rate 77 09/13/17 06:29 Respiratory Rate 20 09/13/17 06:30 Blood Pressure 105/67 09/13/17 06:29 O2 Sat by Pulse Oximetry (%) Pertinent Admission Physical Exam Findings: WITHDRAWAL SX Laboratory Last Values WBC 6.4 K/mm3 (4.0-10.0) 09/10/17 06:00 RBC 4.65 M/mm3 (4.00-5.60) 09/10/17 06:00 Hgb 15.0 GM/dL (11.7-16.9) 09/10/17 06:00 Hct 44.5 % (35.4-49) 09/10/17 06:00 MCV 95.7 fl (80-96) 09/10/17 06:00 MCH 32.3 pg (25.7-33.7) 09/10/17 06:00 MCHC 33.8 g/dl (32.0-35.9) 09/10/17 06:00 RDW 12.7 % (11.9-15.9) 09/10/17 06:00 Plt Count 228 K/MM3 (134-434) 09/10/17 06:00 MPV 9.3 fl (7.5-11.1) D 09/10/17 06:00 Sodium 139 mmol/L (136-145) 09/10/17 06:00 Potassium 4.2 mmol/L (3.5-5.1) 09/10/17 06:00 Chloride 106 mmol/L (98-107) 09/10/17 06:00 Carbon Dioxide 23 mmol/L (21-32) 09/10/17 06:00 Anion Gap 10 (8-16) 09/10/17 06:00 BUN 14 mg/dL (7-18) 09/10/17 06:00 Creatinine 0.9 mg/dL (0.7-1.3) 09/10/17 06:00 Creat Clearance w eGFR > 60 (>60) 09/10/17 06:00 POC Glucometer 97 UNITS (80-120) 09/13/17 06:18 Random Glucose 137 mg/dL (74-106) H D 09/10/17 06:00 Calcium 8.7 mg/dL (8.5-10.1) 09/10/17 06:00 Total Bilirubin 0.2 mg/dL (0.2-1.0) D 09/10/17 06:00 AST 22 U/L (15-37) 09/10/17 06:00 ALT 47 U/L (12-78) D 09/10/17 06:00 Alkaline Phosphatase 82 U/L (45-117) 09/10/17 06:00 Total Protein 7.9 g/dl (6.4-8.2) 09/10/17 06:00 Albumin 3.8 g/dl (3.4-5.0) D 09/10/17 06:00 Urine Color Ltyellow 09/10/17 08:00 Urine Appearance Clear 09/10/17 08:00 Urine pH 5.0 (5.0-8.0) 09/10/17 08:00 Ur Specific [place] 1.016 (1.001-1.035) 09/10/17 08:00 Urine Protein Negative (NEGATIVE) 09/10/17 08:00 Urine Glucose (UA) Negative (NEGATIVE) 09/10/17 08:00 Urine Ketones Negative (NEGATIVE) 09/10/17 08:00 Urine Blood Negative (NEGATIVE) 09/10/17 08:00 Urine Nitrite Negative (NEGATIVE) 09/10/17 08:00 Urine Bilirubin Negative (<2.0 mg/dL) 09/10/17 08:00 Urine Urobilinogen Negative mg/dL (0.2-1.0) 09/10/17 08:00 Ur Leukocyte Esterase Negative (NEGATIVE) 09/10/17 08:00 RPR Titer Nonreactive (NONREACTIVE) 09/10/17 06:00 - Treatment Hospital Course: Detox Protocol Followed, Detoxed Safely, Responded well, Discharged Condition Good, Rehab Referral Accepted Patient has Accepted a Rehab Referral to: [facility] - Medication Discharge Medications: Ambulatory Orders Albuterol Sulfate Inhaler - [Ventolin HFA Inhaler -] 2 inh PO Q6H #1 inhaler Fluticasone/Salmeterol [Advair 250-50 Diskus] 1 each IH DAILY #1 blst.w.dev - Diagnosis (1) Alcohol dependence with uncomplicated withdrawal Current Visit: Yes Status: Acute (2) Asthma Current Visit: Yes Status: Chronic Qualifiers: Asthma severity: mild Asthma persistence: unspecified Asthma complication type: uncomplicated Qualified Code(s): J45.909 - Unspecified asthma, uncomplicated (3) Nicotine dependence Current Visit: Yes Status: Acute Qualifiers: Nicotine product type: cigarettes Substance use status: in withdrawal Qualified Code(s): F17.213 - Nicotine dependence, cigarettes, with withdrawal (4) Insomnia Current Visit: Yes Status: Acute - AMA Did Patient Leave Against Medical Advice: No
[2017-09-13] MEDS: cloNIDine HCL 0.1 MG TABLET PO SCH (10:41)
[2017-09-13] MEDS: BUDESONIDE/FORMETEROL FUMARATE 160/4.5 mcg INHALER IH SCH (10:41)
[2017-09-13] MEDS: PRENATAL VITAMINS W/ FOLIC ACID TABLET (FP) PO SCH (10:42)
[2017-09-13 14:22] VITALS: BP 140/74; PULSE 101; TEMP 96.7
== END 2017-09-13 14:58 | disposition other institution (70) | DRG 773 ==
LOC: YASAS 10:31 → Y3N 14:47
PROVIDERS: ADMIT Internal Medicine; ATTEND Internal Medicine
PROC: HZ2ZZZZ Detoxification Services for Substance Abuse Treatment (ICD-10-PCS; principal; 2017-09-09)
DX: F11.23 Opioid dependence with withdrawal (principal); F13.230 Sedative, hypnotic or anxiolytic dependence with withdrawal, uncomplicated; F10.230 Alcohol dependence with withdrawal, uncomplicated; F17.210 Nicotine dependence, cigarettes, uncomplicated; F51.05 Insomnia due to other mental disorder; J45.909 Unspecified asthma, uncomplicated
CPT/HCPCS: 36415; 80053; 81003; 82962; 85027; 86593; 93005; 93010; J0735

== ENCOUNTER 2017-09-13 15:02 | Inpatient (IN) | payer OTHER ==
--- NOTE | 2017-09-13 15:58 | HP ---
[facility] Re[facility] Assess/Revision - Admission History Admitted to Rehab from: [facility] Date of Admission to Rehab: 09/13/17 - Vital signs Vital Signs: Vital Signs Period Temp Pulse Resp BP Sys/Patel Pulse Ox Last 24 Hr 98.3 F 96 20 105/52 - Findings Detox History & Physical reviewed: Yes Concur with findings: Yes Comments/Additional Findings: PT COMPLETED DETOX ON TODAY AND REFERRED TO REHAB FOR AFTERCARE TODAY. ALERT O X 3. NAD.
[2017-09-13] MEDS ORDERED: LOPERAMIDE HCL 2 MG CAPSULE PO PRN (16:00)
[2017-09-13] MEDS ORDERED: MAG HYDROX/AL HYDROX/SIMETH 30 ML UNIT-DOSE CUP PO PRN (16:00)
[2017-09-13] MEDS ORDERED: P-EPHED 60MG/TRIPROLIDI 2.5MG TABLET PO PRN (16:00)
[2017-09-13] MEDS ORDERED: MENTHOL/PHENOL 1 EACH UD MM PRN (16:00)
[2017-09-13] MEDS ORDERED: MAGNESIUM HYDROX 2400MG/30ML ORAL SUSPENSION 30 ML CUP PO PRN (16:00)
[2017-09-13] MEDS ORDERED: MAGNESIUM CITRATE 300 ML BOTTLE PO PRN (16:00)
[2017-09-13] MEDS ORDERED: guaiFENesin/D-METHORPHAN HB 10 ML UNIT-DOSE CUPS PO PRN (16:00)
[2017-09-13] MEDS: ALBUTEROL SO4 18 GM HFA INHALER IH SCH ×2 (17:02→21:27)
[2017-09-13] MEDS: NICOTINE 21 MG/24 HOURS TOPICAL PATCH TD SCH (17:02)
[2017-09-13] MEDS: BUDESONIDE/FORMETEROL FUMARATE 160/4.5 mcg INHALER IH SCH (21:27)
[2017-09-13] MEDS: THIAMINE HCL 100 MG TABLET (FP) PO SCH (21:28)
[2017-09-13] MEDS: MELATONIN 5 MG TABLETS PO PRN (21:28)
[2017-09-14] MEDS: hydrOXYzine PAMOATE 50 MG CAPSULE (FP) PO PRN ×3 (00:46→21:27)
[2017-09-14] MEDS: ALBUTEROL SO4 18 GM HFA INHALER IH SCH ×4 (04:15→21:28)
--- NOTE | 2017-09-14 06:38 | HP ---
Psychiatrist Admission - Data Date of interview: 09/14/17 Admission source: [facility] Identifying data: This is the first [facility] admission for this 27 years old single male, father of 2 children, unemployed on food stamp, homeless Medical History: Significant for bronchial asthma and history of orthosurgery for fracture of left ankle at age 14. Smokes cigarettes 1ppd Psychiatric History: Patient reports that his first psychiatric contact was at age 15-15 when he was admitted to [facility] for depression and behavior issues. Claims that he was told that he has Bipolar and prescribed medications. He has no recollection of name of medications. Reports that he did not go to aftercare and stopped taking medication on discharge. Reports 2 subsequent ED visits at [facility]. Most recently in Jun 2017 he was observed there for 3 days due to suicidal, homicidal ideations. Claims that he was discharged on no medication and follow up. Denies history of suicidal attempt. At present, reports feeling mildly depressed and sleeping poorly Physical/Sexual Abuse/Trauma History: Denies history of emotional, physical or sexual abuse as well as DV relationship Additional Comment: Reports history of multile previous arrests including one felony conviction. Reports having an active legal case in [place] Vital Signs: Vital Signs - 24 hr 09/13/17 09/14/17 15:25 03:30 Temperature 98.3 F Pulse Rate 96 H Respiratory 20 20 Rate Blood Pressure 105/52 Allergies/Adverse Reactions: Allergies Allergy/AdvReac Type Severity Reaction Status Date / Time No Known Allergies Allergy Verified 09/13/17 15:53 Date of last physical exam: 09/09/17 Concur with the findings of this exam: Yes - Substance Abuse/Tx History Hx Alcohol Use: Yes Hx Substance Use: Yes Substance Use Type: Alcohol (Started drinking alcohol at age 13, consumes 1-1.5 pint of whisky & a 6pk of beer daily. Last drank on 09/09/17), Heroin (Started using heroin at age 19, consumes 2 bags 1-3 times in the last 30 days. Last used on 09/02/17), Tranquilizers (Started using xanax at age 15, consumes 2 mg 3- 6 times weekly. Last used on 09/09/17) Hx Substance Use Treatment: Yes (2 previous inpt detox @ [facility]) Mental Status Exam - Mental Status Exam Alert and Oriented to: Time, Place, Person Cognitive Function: Fair Patient Appearance: Well Groomed Mood: Depressed (mildly) Affect: Normal Range Patient Behavior: Cooperative Speech Pattern: Clear Voice Loudness: Normal Thought Process: Intact Thought Disorder: Not Present Hallucinations: Denies Suicidal Ideation: Denies Homicidal Ideation: Denies Insight/Judgement: Fair Sleep: Poorly Appetite: Good Muscle strength/Tone: Normal Gait/Station: Normal Psychiatric Findings - Problem List ([place] 1, 2,3) (1) Alcohol dependence Current Visit: Yes Status: Acute (2) Opioid dependence Current Visit: Yes Status: Acute (3) Sedative hypnotic or anxiolytic dependence Current Visit: Yes Status: Acute (4) Nicotine dependence Current Visit: No Status: Chronic Qualifiers: (5) Substance induced mood disorder Current Visit: Yes Status: Acute (6) Substance-induced sleep disorder Current Visit: Yes Status: Acute (7) Asthma Current Visit: No Status: Chronic Qualifiers: - Initial Treatment Plan Initial Treatment Plan: 1) Start Belsomra 10 mg po HS prn for insomnia. Benefit vs Risks of medication discussed with patient and he agreed to try it. 2) Monitor progress
[2017-09-14] MEDS: NICOTINE 21 MG/24 HOURS TOPICAL PATCH TD SCH (10:55)
[2017-09-14] MEDS: PRENATAL VITAMINS W/ FOLIC ACID TABLET (FP) PO SCH (10:55)
[2017-09-14] MEDS: BUDESONIDE/FORMETEROL FUMARATE 160/4.5 mcg INHALER IH SCH ×2 (10:55→21:25)
--- NOTE | 2017-09-14 13:34 | PN ---
[facility] Progress Note Note: Patient presents with complaints of anxiety and muscle aches. Requested suboxone , however, urine detox negative for opiods. Patient recently completed detox for ETOH dependence. Vital Signs Temperature 97.3 F L 09/14/17 06:42 Pulse Rate 84 09/14/17 06:42 Respiratory Rate 18 09/14/17 06:42 Blood Pressure 106/77 09/14/17 06:42 O2 Sat by Pulse Oximetry (%) General: pt is alert and oriented x 3. Ambulating in unit without assistance. In no acute distress Skin: warm and dry. Intact. Neuro: CN 1-X11 grossly intact. No tremors noted MS: mild tenderness to lumbar area A/P: LBP anxiety Will add flexeril 10mg tid Pt not candidate for Suboxone as urine detox negative continue vistaril as ordered continue to monitor clinically
[2017-09-14] MEDS: SUVOREXANT 10 MG TABLET PO PRN (21:27)
[2017-09-14] MEDS: THIAMINE HCL 100 MG TABLET (FP) PO SCH (21:28)
[2017-09-14] MEDS: MELATONIN 5 MG TABLETS PO PRN (21:29)
[2017-09-15] MEDS: ALBUTEROL SO4 18 GM HFA INHALER IH SCH ×2 (04:15→12:21)
[2017-09-15] MEDS: NICOTINE 21 MG/24 HOURS TOPICAL PATCH TD SCH (10:05)
[2017-09-15] MEDS: BUDESONIDE/FORMETEROL FUMARATE 160/4.5 mcg INHALER IH SCH ×2 (10:05→21:30)
[2017-09-15] MEDS: PRENATAL VITAMINS W/ FOLIC ACID TABLET (FP) PO SCH (10:05)
[2017-09-15] MEDS: ACETAMINOPHEN 325 MG TABLET (FP) PO PRN (10:06)
[2017-09-15] MEDS ORDERED: ALBUTEROL SO4 18 GM HFA INHALER IH PRN (13:26)
[2017-09-15] MEDS: NICOTINE POLACRILEX 4 MG GUM BUC PRN (20:10)
[2017-09-15] MEDS: hydrOXYzine PAMOATE 50 MG CAPSULE (FP) PO PRN (20:10)
[2017-09-15] MEDS: THIAMINE HCL 100 MG TABLET (FP) PO SCH (21:29)
[2017-09-15] MEDS ORDERED: PT OWN MED DRAWER 7, Y5N ONE (21:30)
[2017-09-15] MEDS: MELATONIN 5 MG TABLETS PO PRN (21:31)
[2017-09-15] MEDS: SUVOREXANT 10 MG TABLET PO PRN (21:31)
[2017-09-16] MEDS: hydrOXYzine PAMOATE 50 MG CAPSULE (FP) PO PRN ×2 (02:42→14:20)
[2017-09-16] MEDS: BUDESONIDE/FORMETEROL FUMARATE 160/4.5 mcg INHALER IH SCH ×2 (10:36→21:20)
[2017-09-16] MEDS: NICOTINE 21 MG/24 HOURS TOPICAL PATCH TD SCH (10:36)
[2017-09-16] MEDS: PRENATAL VITAMINS W/ FOLIC ACID TABLET (FP) PO SCH (10:36)
[2017-09-16] MEDS: NICOTINE POLACRILEX 4 MG GUM BUC PRN ×2 (10:37→14:21)
--- NOTE | 2017-09-16 14:35 | PN ---
Psychiatric Progress Note Vital Signs: Vital Signs Period Temp Pulse Resp BP Sys/Patel Pulse Ox Last 24 Hr 97.5 F 81 18-20 105/71 Date of Session: 09/16/17 Chief Complaint:: Insomnia HPI: Patient addressing Alcohol, Opioid and Sedative Dependence comorbid with Nicotine Dependence, Substance-Induced Mood Disorder and Substance-Induced Sleep Disorder ROS: Asthma Current Medications: Active Medications Generic Name Dose Route Start Last Admin Trade Name Freq PRN Reason Stop Dose Admin Acetaminophen 650 mg 09/13/17 16:00 09/15/17 10:06 Tylenol - PO 650 mg Q4H PRN Administration FEVER Al Hydroxide/Mg Hydroxide 30 ml 09/13/17 16:00 Mylanta Oral Suspension - PO Q6H PRN DYSPEPSIA Albuterol Sulfate 2 puff 09/15/17 13:26 Ventolin Hfa Inhaler - IH Q6H PRN WHEEZING Budesonide/Formoterol Fumarate 2 puff 09/13/17 22:00 09/16/17 10:36 Symbicort 160/4.5mcg - IH Not Given BID AUBREE Cyclobenzaprine HCl 10 mg 09/14/17 13:27 Flexeril - PO TID PRN MUSCLE SPASMS Eucalyptus/Menthol/Phenol/Sorbitol 1 each 09/13/17 16:00 Cepastat Lozenge - MM Q4H PRN SORE THROAT Guaifenesin 10 ml 09/13/17 16:00 Robitussin Dm - PO Q6H PRN COUGH Hydroxyzine Pamoate 50 mg 09/13/17 16:00 09/16/17 14:20 Vistaril - PO 50 mg Q4H PRN Administration AGITATION Ibuprofen 400 mg 09/13/17 16:00 Motrin - PO Q6H PRN Pain Level 4-6 Loperamide HCl 4 mg 09/13/17 16:00 Imodium - PO Q6H PRN DIARRHEA Magnesium Citrate 300 ml 09/13/17 16:00 Citroma - PO Q48H PRN CONSTIPATION Magnesium Hydroxide 30 ml 09/13/17 16:00 Milk Of Magnesia - PO DAILY PRN CONSTIPATION Melatonin 5 mg 09/13/17 22:00 09/15/17 21:31 Melatonin PO 5 mg HS PRN Administration INSOMNIA Nicotine 21 mg 09/13/17 16:30 09/16/17 10:36 Nicoderm Patch - TD 21 mg DAILY AUBREE Administration Nicotine Polacrilex 4 mg 09/13/17 16:00 09/16/17 14:21 Nicorette Gum - BUC 4 mg Q2H PRN Administration NICOTINE REPLACEMENT RX Multivit/Folic Acid/Iron 1 tab 09/14/17 10:00 09/16/17 10:36 Vitamins (Sjr) - PO Not Given DAILY AUBREE Pseudoephedrine/Triprolidine 1 combo 09/13/17 16:00 Actifed - PO TID PRN NASAL CONGESTION Thiamine HCl 100 mg 09/13/17 22:00 09/15/17 21:29 Vitamin B1 - PO 100 mg HS AUBREE Administration Medication(s) Change(s): Increase Belsomra dosage to 15 mg po HS prn for insomnia Current Side Effect: No Lab tests ordered: Yes Lab tests reviewed: Yes Provider note:: Patient reports experiencing difficulty to sleep. Told newspaper writer that he has been sleeping poorly despite taking Belsomra 10 mg at bedtime. Discussed with patient about increasing dosage of Belsomra to 15 mg and he agreed with that plan Total face to face time:: 15 Mental Status Exam - Mental Status Exam Alert and Oriented to: Time, Place, Person Cognitive Function: Fair Patient Appearance: Well Groomed Mood: Hopeful, Euthymic Affect: Appropriate Patient Behavior: Cooperative Speech Pattern: Clear Voice Loudness: Normal Thought Process: Intact, Goal Oriented Thought Disorder: Not Present Hallucinations: Denies Suicidal Ideation: Denies Homicidal Ideation: Denies Insight/Judgement: Fair Sleep: Poorly Appetite: Good Muscle strength/Tone: Normal Gait/Station: Normal Psychiatric Treatment Plan - Problem List (1) Alcohol dependence Current Visit: Yes (2) Opioid dependence Current Visit: Yes (3) Sedative hypnotic or anxiolytic dependence Current Visit: Yes (4) Nicotine dependence Current Visit: No Qualifiers: (5) Substance induced mood disorder Current Visit: Yes (6) Substance-induced sleep disorder Current Visit: Yes (7) Asthma Current Visit: No Qualifiers: Initial treatment plan: 1) Discontinue Belsomra as currently ordered. 2) Start Belsomra 15 mg po HS prn for insomnia. 3) Monitor progress
[2017-09-16] MEDS: MELATONIN 5 MG TABLETS PO PRN (21:21)
[2017-09-16] MEDS: SUVOREXANT 15 MG TABLET PO PRN (21:21)
[2017-09-16] MEDS: THIAMINE HCL 100 MG TABLET (FP) PO SCH (21:21)
[2017-09-17] MEDS: hydrOXYzine PAMOATE 50 MG CAPSULE (FP) PO PRN ×3 (00:21→21:37)
[2017-09-17] MEDS: NICOTINE 21 MG/24 HOURS TOPICAL PATCH TD SCH (09:51)
[2017-09-17] MEDS: PRENATAL VITAMINS W/ FOLIC ACID TABLET (FP) PO SCH (09:51)
[2017-09-17] MEDS: ACETAMINOPHEN 325 MG TABLET (FP) PO PRN (09:52)
[2017-09-17] MEDS: BUDESONIDE/FORMETEROL FUMARATE 160/4.5 mcg INHALER IH SCH ×2 (10:28→21:37)
[2017-09-17] MEDS: NICOTINE POLACRILEX 4 MG GUM BUC PRN ×3 (12:47→22:13)
[2017-09-17] MEDS: MELATONIN 5 MG TABLETS PO PRN (21:37)
[2017-09-17] MEDS: THIAMINE HCL 100 MG TABLET (FP) PO SCH (21:37)
[2017-09-17] MEDS: SUVOREXANT 15 MG TABLET PO PRN (21:37)
[2017-09-18] MEDS: hydrOXYzine PAMOATE 50 MG CAPSULE (FP) PO PRN ×3 (04:38→21:16)
[2017-09-18] MEDS: BUDESONIDE/FORMETEROL FUMARATE 160/4.5 mcg INHALER IH SCH ×2 (10:13→21:17)
[2017-09-18] MEDS: NICOTINE 21 MG/24 HOURS TOPICAL PATCH TD SCH (10:13)
[2017-09-18] MEDS: PRENATAL VITAMINS W/ FOLIC ACID TABLET (FP) PO SCH (10:13)
[2017-09-18] MEDS: THIAMINE HCL 100 MG TABLET (FP) PO SCH (21:14)
[2017-09-18] MEDS: NICOTINE POLACRILEX 4 MG GUM BUC PRN (21:15)
[2017-09-18] MEDS: SUVOREXANT 15 MG TABLET PO PRN (21:15)
[2017-09-18] MEDS: MELATONIN 5 MG TABLETS PO PRN (21:15)
[2017-09-19] MEDS ORDERED: PT OWN MED DRAWER 7, Y5N ONE (01:58)
[2017-09-19] MEDS: hydrOXYzine PAMOATE 50 MG CAPSULE (FP) PO PRN (01:58)
[2017-09-19] MEDS: BUDESONIDE/FORMETEROL FUMARATE 160/4.5 mcg INHALER IH SCH ×2 (10:12→21:23)
[2017-09-19] MEDS: PRENATAL VITAMINS W/ FOLIC ACID TABLET (FP) PO SCH (10:12)
[2017-09-19] MEDS: NICOTINE 21 MG/24 HOURS TOPICAL PATCH TD SCH (10:12)
--- NOTE | 2017-09-19 10:22 | PN ---
Psychiatric Progress Note Vital Signs: Vital Signs Period Temp Pulse Resp BP Sys/Patel Pulse Ox Last 24 Hr 97.5 F 78 18-18 113/72 Date of Session: 09/19/17 Chief Complaint:: Insomnia HPI: Patient addressing Alcohol, Opioid and Sedative Dependence comorbid with Nicotine Dependence, Substance-Induced Mood Disorder and Substance-Induced Sleep Disorder Current Medications: Active Medications Generic Name Dose Route Start Last Admin Trade Name Freq PRN Reason Stop Dose Admin Acetaminophen 650 mg 09/13/17 16:00 09/17/17 09:52 Tylenol - PO 650 mg Q4H PRN Administration FEVER Al Hydroxide/Mg Hydroxide 30 ml 09/13/17 16:00 Mylanta Oral Suspension - PO Q6H PRN DYSPEPSIA Albuterol Sulfate 2 puff 09/15/17 13:26 Ventolin Hfa Inhaler - IH Q6H PRN WHEEZING Budesonide/Formoterol Fumarate 2 puff 09/13/17 22:00 09/19/17 10:12 Symbicort 160/4.5mcg - IH 2 puff BID AUBREE Administration Cyclobenzaprine HCl 10 mg 09/14/17 13:27 Flexeril - PO TID PRN MUSCLE SPASMS Eucalyptus/Menthol/Phenol/Sorbitol 1 each 09/13/17 16:00 Cepastat Lozenge - MM Q4H PRN SORE THROAT Guaifenesin 10 ml 09/13/17 16:00 Robitussin Dm - PO Q6H PRN COUGH Hydroxyzine Pamoate 50 mg 09/13/17 16:00 09/19/17 01:58 Vistaril - PO 50 mg Q4H PRN Administration AGITATION Ibuprofen 400 mg 09/13/17 16:00 Motrin - PO Q6H PRN Pain Level 4-6 Loperamide HCl 4 mg 09/13/17 16:00 Imodium - PO Q6H PRN DIARRHEA Magnesium Citrate 300 ml 09/13/17 16:00 Citroma - PO Q48H PRN CONSTIPATION Magnesium Hydroxide 30 ml 09/13/17 16:00 Milk Of Magnesia - PO DAILY PRN CONSTIPATION Melatonin 5 mg 09/13/17 22:00 09/18/17 21:15 Melatonin PO 5 mg HS PRN Administration INSOMNIA Nicotine 21 mg 09/13/17 16:30 09/19/17 10:12 Nicoderm Patch - TD 21 mg DAILY AUBREE Administration Nicotine Polacrilex 4 mg 09/13/17 16:00 09/18/17 21:15 Nicorette Gum - BUC 4 mg Q2H PRN Administration NICOTINE REPLACEMENT RX Multivit/Folic Acid/Iron 1 tab 09/14/17 10:00 09/19/17 10:12 Vitamins (Sjr) - PO 1 tab DAILY AUBREE Administration Pseudoephedrine/Triprolidine 1 combo 09/13/17 16:00 Actifed - PO TID PRN NASAL CONGESTION Suvorexant 15 mg 09/16/17 22:00 09/18/17 21:15 Belsomra PO 09/19/17 21:59 15 mg HS PRN Administration INSOMNIA Suvorexant 15 mg 09/19/17 22:00 Belsomra PO 09/22/17 21:59 HS PRN INSOMNIA Thiamine HCl 100 mg 09/13/17 22:00 09/18/17 21:14 Vitamin B1 - PO 100 mg HS AUBREE Administration Trazodone HCl 100 mg 09/19/17 22:00 Desyrel - PO HS AUBREE Medication(s) Change(s): Start Trazadone 100 mg po HS Current Side Effect: No Lab tests ordered: Yes Lab tests reviewed: Yes Provider note:: Patient continues to report experiencing difficulty to sleep. 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 Requests to be ordered Trazadone. Benefits vs Risks of medication discussed with patient and he agreed to try it Total face to face time:: 15 Mental Status Exam - Mental Status Exam Alert and Oriented to: Time, Place, Person Cognitive Function: Fair Patient Appearance: Well Groomed Mood: Hopeful, Euthymic Affect: Appropriate Patient Behavior: Cooperative Speech Pattern: Clear, Artificially Ventilated Thought Process: Intact, Goal Oriented Thought Disorder: Not Present Hallucinations: Denies Suicidal Ideation: Denies Homicidal Ideation: Denies Insight/Judgement: Fair Sleep: Poorly Appetite: Good Muscle strength/Tone: Normal Gait/Station: Normal Psychiatric Treatment Plan - Problem List (1) Alcohol dependence Current Visit: Yes (2) Opioid dependence Current Visit: Yes (3) Sedative hypnotic or anxiolytic dependence Current Visit: Yes (4) Nicotine dependence Current Visit: No Qualifiers: (5) Substance induced mood disorder Current Visit: Yes (6) Substance-induced sleep disorder Current Visit: Yes (7) Asthma Current Visit: No Qualifiers: Initial treatment plan: 1) Start Trazadone 100 mg po HS. 2) Monitor progress
[2017-09-19] MEDS: NICOTINE POLACRILEX 4 MG GUM BUC PRN ×2 (12:38→21:22)
[2017-09-19] MEDS: THIAMINE HCL 100 MG TABLET (FP) PO SCH (21:22)
[2017-09-19] MEDS: SUVOREXANT 15 MG TABLET PO PRN (21:22)
[2017-09-19] MEDS: traZODone HCL 100 MG TABLET (FP) PO SCH (21:22)
[2017-09-19] MEDS: MELATONIN 5 MG TABLETS PO PRN (21:22)
[2017-09-19] MEDS ORDERED: SUVOREXANT 15 MG TABLET PO PRN (22:00)
[2017-09-20] MEDS: BUDESONIDE/FORMETEROL FUMARATE 160/4.5 mcg INHALER IH SCH ×2 (10:22→22:18)
[2017-09-20] MEDS: PRENATAL VITAMINS W/ FOLIC ACID TABLET (FP) PO SCH (10:22)
[2017-09-20] MEDS: NICOTINE 21 MG/24 HOURS TOPICAL PATCH TD SCH (10:22)
[2017-09-20] MEDS: hydrOXYzine PAMOATE 50 MG CAPSULE (FP) PO PRN (13:07)
[2017-09-20] MEDS: NICOTINE POLACRILEX 4 MG GUM BUC PRN (15:51)
[2017-09-20] MEDS: traZODone HCL 100 MG TABLET (FP) PO SCH (21:26)
[2017-09-20] MEDS: MELATONIN 5 MG TABLETS PO PRN (21:27)
[2017-09-20] MEDS: THIAMINE HCL 100 MG TABLET (FP) PO SCH (22:18)
[2017-09-21] MEDS: PRENATAL VITAMINS W/ FOLIC ACID TABLET (FP) PO SCH (10:07)
[2017-09-21] MEDS: BUDESONIDE/FORMETEROL FUMARATE 160/4.5 mcg INHALER IH SCH ×2 (10:07→21:46)
[2017-09-21] MEDS: NICOTINE 21 MG/24 HOURS TOPICAL PATCH TD SCH (10:07)
[2017-09-21] MEDS: NICOTINE POLACRILEX 4 MG GUM BUC PRN ×2 (10:08→15:55)
[2017-09-21] MEDS: hydrOXYzine PAMOATE 50 MG CAPSULE (FP) PO PRN (12:40)
[2017-09-21] MEDS: traZODone HCL 100 MG TABLET (FP) PO SCH (21:45)
[2017-09-21] MEDS: MELATONIN 5 MG TABLETS PO PRN (21:45)
[2017-09-21] MEDS: THIAMINE HCL 100 MG TABLET (FP) PO SCH (21:45)
[2017-09-22] MEDS: PRENATAL VITAMINS W/ FOLIC ACID TABLET (FP) PO SCH (10:22)
[2017-09-22] MEDS: NICOTINE 21 MG/24 HOURS TOPICAL PATCH TD SCH (10:22)
[2017-09-22] MEDS: BUDESONIDE/FORMETEROL FUMARATE 160/4.5 mcg INHALER IH SCH ×2 (10:23→22:52)
[2017-09-22] MEDS: THIAMINE HCL 100 MG TABLET (FP) PO SCH (22:15)
[2017-09-22] MEDS: traZODone HCL 100 MG TABLET (FP) PO SCH (22:15)
[2017-09-22] MEDS: CYCLOBENZAPRINE HCL 10 MG TABLET (FP) PO PRN (22:17)
[2017-09-22] MEDS: hydrOXYzine PAMOATE 50 MG CAPSULE (FP) PO PRN (22:17)
[2017-09-23] MEDS: SUVOREXANT 15 MG TABLET PO PRN ×2 (00:21→21:56)
[2017-09-23] MEDS: BUDESONIDE/FORMETEROL FUMARATE 160/4.5 mcg INHALER IH SCH ×2 (10:30→21:57)
[2017-09-23] MEDS: PRENATAL VITAMINS W/ FOLIC ACID TABLET (FP) PO SCH (10:30)
[2017-09-23] MEDS: NICOTINE 21 MG/24 HOURS TOPICAL PATCH TD SCH (10:30)
[2017-09-23] MEDS: CYCLOBENZAPRINE HCL 10 MG TABLET (FP) PO PRN (21:55)
[2017-09-23] MEDS: THIAMINE HCL 100 MG TABLET (FP) PO SCH (21:56)
[2017-09-23] MEDS: traZODone HCL 100 MG TABLET (FP) PO SCH (21:56)
--- NOTE | 2017-09-24 07:29 | PN ---
[facility] Progress Note Note: bgm dc nl bgms noted no hx/o dm noted chemistry nl Laboratory Tests 09/20/17 09/21/17 09/22/17 06:29 06:35 06:23 POC Glucometer 88 82 82
[2017-09-24] MEDS ORDERED: PT OWN MED DRAWER 7, Y5N ONE (08:53)
[2017-09-24] MEDS: PRENATAL VITAMINS W/ FOLIC ACID TABLET (FP) PO SCH (09:47)
[2017-09-24] MEDS: BUDESONIDE/FORMETEROL FUMARATE 160/4.5 mcg INHALER IH SCH ×2 (09:47→22:06)
[2017-09-24] MEDS: NICOTINE 21 MG/24 HOURS TOPICAL PATCH TD SCH (09:48)
[2017-09-24] MEDS: THIAMINE HCL 100 MG TABLET (FP) PO SCH (22:05)
[2017-09-24] MEDS: traZODone HCL 100 MG TABLET (FP) PO SCH (22:06)
[2017-09-24] MEDS: SUVOREXANT 15 MG TABLET PO PRN (22:08)
[2017-09-24] MEDS: CYCLOBENZAPRINE HCL 10 MG TABLET (FP) PO PRN (22:08)
[2017-09-24] MEDS: hydrOXYzine PAMOATE 50 MG CAPSULE (FP) PO PRN (22:08)
[2017-09-24] MEDS ORDERED: SUVOREXANT 15 MG TABLET PO PRN (23:00)
[2017-09-24] MEDS: IBUPROFEN 400 MG TABLET (FP) PO PRN (23:32)
[2017-09-25] MEDS: PRENATAL VITAMINS W/ FOLIC ACID TABLET (FP) PO SCH (10:28)
[2017-09-25] MEDS: BUDESONIDE/FORMETEROL FUMARATE 160/4.5 mcg INHALER IH SCH ×2 (10:28→22:06)
[2017-09-25] MEDS: NICOTINE 21 MG/24 HOURS TOPICAL PATCH TD SCH (10:28)
--- NOTE | 2017-09-25 15:27 | PN ---
Psychiatric Progress Note Vital Signs: Vital Signs Period Temp Pulse Resp BP Sys/Patel Pulse Ox Last 24 Hr 97.7 F 89 18-18 121/76 Date of Session: 09/25/17 Chief Complaint:: Discharge Note HPI: Patient addressing Alcohol, Opioid and Cocaine Dependence comorbid with Nicotine Dependence , Substance-Induced Mood Disorder and Substance-Induced Sleep Disorder ROS: Asthma Current Medications: Active Medications Generic Name Dose Route Start Last Admin Trade Name Freq PRN Reason Stop Dose Admin Acetaminophen 650 mg 09/13/17 16:00 09/17/17 09:52 Tylenol - PO 650 mg Q4H PRN Administration FEVER Al Hydroxide/Mg Hydroxide 30 ml 09/13/17 16:00 Mylanta Oral Suspension - PO Q6H PRN DYSPEPSIA Albuterol Sulfate 2 puff 09/15/17 13:26 Ventolin Hfa Inhaler - IH Q6H PRN WHEEZING Budesonide/Formoterol Fumarate 2 puff 09/13/17 22:00 09/25/17 10:28 Symbicort 160/4.5mcg - IH 2 puff BID AUBREE Administration Cyclobenzaprine HCl 10 mg 09/14/17 13:27 09/24/17 22:08 Flexeril - PO 10 mg TID PRN Administration MUSCLE SPASMS Eucalyptus/Menthol/Phenol/Sorbitol 1 each 09/13/17 16:00 Cepastat Lozenge - MM Q4H PRN SORE THROAT Guaifenesin 10 ml 09/13/17 16:00 Robitussin Dm - PO Q6H PRN COUGH Hydroxyzine Pamoate 50 mg 09/13/17 16:00 09/24/17 22:08 Vistaril - PO 50 mg Q4H PRN Administration AGITATION Ibuprofen 400 mg 09/13/17 16:00 09/24/17 23:32 Motrin - PO 400 mg Q6H PRN Administration Pain Level 4-6 Loperamide HCl 4 mg 09/13/17 16:00 Imodium - PO Q6H PRN DIARRHEA Magnesium Citrate 300 ml 09/13/17 16:00 Citroma - PO Q48H PRN CONSTIPATION Magnesium Hydroxide 30 ml 09/13/17 16:00 Milk Of Magnesia - PO DAILY PRN CONSTIPATION Melatonin 5 mg 09/13/17 22:00 09/21/17 21:45 Melatonin PO 5 mg HS PRN Administration INSOMNIA Nicotine 21 mg 09/13/17 16:30 09/25/17 10:28 Nicoderm Patch - TD Not Given DAILY AUBREE Nicotine Polacrilex 4 mg 09/13/17 16:00 09/21/17 15:55 Nicorette Gum - BUC 4 mg Q2H PRN Administration NICOTINE REPLACEMENT RX Multivit/Folic Acid/Iron 1 tab 09/14/17 10:00 09/25/17 10:28 Vitamins (Sjr) - PO 1 tab DAILY AUBREE Administration Pseudoephedrine/Triprolidine 1 combo 09/13/17 16:00 Actifed - PO TID PRN NASAL CONGESTION Suvorexant 15 mg 09/24/17 23:00 Belsomra PO HS PRN INSOMNIA Thiamine HCl 100 mg 09/13/17 22:00 09/24/17 22:05 Vitamin B1 - PO 100 mg HS AUBREE Administration Trazodone HCl 100 mg 09/19/17 22:00 09/24/17 22:06 Desyrel - PO 100 mg HS AUBREE Administration Current Side Effect: No Lab tests ordered: Yes Lab tests reviewed: Yes Provider note:: Patient will complete this program on 09/26/17. He has met his treatment goals and will continue to address his issues in detention residential treatment at [facility]. 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 He responded well to Trazadone 100 mg po HS and Belsomra 10 mg po HS prn for insomnia. Script for 30 days supply of Trazadone 100 mg po HS will be electronically transmitted to [facility] at [address] [place] [address]. He is stable for discharge on 09/26/17 Total face to face time:: 35 Mental Status Exam - Mental Status Exam Alert and Oriented to: Time, Place, Person Cognitive Function: Fair Patient Appearance: Well Groomed Mood: Hopeful, Euthymic Affect: Appropriate Patient Behavior: Cooperative Speech Pattern: Clear Voice Loudness: Normal Thought Process: Intact, Goal Oriented Thought Disorder: Not Present Hallucinations: Denies Suicidal Ideation: Denies Homicidal Ideation: Denies Insight/Judgement: Fair Sleep: Fair Appetite: Good Muscle strength/Tone: Normal Gait/Station: Normal Psychiatric Treatment Plan - Problem List (1) Alcohol dependence Current Visit: Yes (2) Opioid dependence Current Visit: Yes (3) Sedative hypnotic or anxiolytic dependence Current Visit: Yes (4) Nicotine dependence Current Visit: No Qualifiers: (5) Substance induced mood disorder Current Visit: Yes (6) Substance-induced sleep disorder Current Visit: Yes (7) Asthma Current Visit: No Qualifiers: Initial treatment plan: Patient will be discharged tomorrow and referred to [facility] for detention residential treatment
[2017-09-25] MEDS: NICOTINE POLACRILEX 4 MG GUM BUC PRN ×2 (17:41→22:11)
[2017-09-25] MEDS: THIAMINE HCL 100 MG TABLET (FP) PO SCH (22:06)
[2017-09-25] MEDS: traZODone HCL 100 MG TABLET (FP) PO SCH (22:07)
[2017-09-25] MEDS: IBUPROFEN 400 MG TABLET (FP) PO PRN (22:09)
[2017-09-25] MEDS: hydrOXYzine PAMOATE 50 MG CAPSULE (FP) PO PRN (22:09)
[2017-09-25] MEDS: CYCLOBENZAPRINE HCL 10 MG TABLET (FP) PO PRN (22:09)
[2017-09-26 07:00] VITALS: BP 107/73; PULSE 87; TEMP 97.4
== END 2017-09-26 08:45 | disposition home or self-care (01) | DRG 772 ==
LOC: YASAS 15:02 → Y3W 15:03
PROVIDERS: ADMIT Psychiatry & Neurology Psychiatry; ATTEND Psychiatry & Neurology Psychiatry
PROC: HZ42ZZZ Group Counseling for Substance Abuse Treatment, Cognitive-Behavioral (ICD-10-PCS; principal; 2017-09-13)
DX: F11.20 Opioid dependence, uncomplicated (principal); F13.20 Sedative, hypnotic or anxiolytic dependence, uncomplicated; F10.20 Alcohol dependence, uncomplicated; F14.20 Cocaine dependence, uncomplicated; F17.210 Nicotine dependence, cigarettes, uncomplicated; F19.24 Other psychoactive substance dependence with psychoactive substance-induced mood disorder; F19.282 Other psychoactive substance dependence with psychoactive substance-induced sleep disorder; M54.5 Low back pain; J45.909 Unspecified asthma, uncomplicated
CPT/HCPCS: 82962

== ENCOUNTER 2021-01-27 12:40 | Inpatient (IN) | payer OTHER ==
[2021-01-27 13:18] VITALS: BMI 45.1
[2021-01-27] MEDS ORDERED: MAG HYDROX/AL HYDROX/SIMETH 30 ML UNIT-DOSE CUP PO PRN (17:51)
[2021-01-27] MEDS ORDERED: MAGNESIUM CITRATE 300 ML BOTTLE PO PRN (17:51)
[2021-01-27] MEDS ORDERED: ONDANSETRON *ODT* 4 MG TABLET SL PRN (17:51)
[2021-01-27] MEDS ORDERED: BISMUTH SUBSALICYLATE 524 MG/30 ML PO PRN (17:51)
[2021-01-27] MEDS ORDERED: ACETAMINOPHEN 325 MG TABLET (FP) PO PRN ×2 (17:51)
[2021-01-27] MEDS ORDERED: MAGNESIUM HYDROX 2400MG/30ML ORAL SUSPENSION 30 ML CUP PO PRN (17:51)
[2021-01-27] MEDS ORDERED: MENTHOL/PHENOL 1 EACH UD MM PRN (17:51)
[2021-01-27] MEDS ORDERED: LORazepam 1 MG TABLET PO PRN (17:51)
[2021-01-27] MEDS: THIAMINE HCL 100 MG TABLET (FP) PO SCH (22:41)
[2021-01-27] MEDS: MELATONIN 5 MG TABLETS PO SCH (22:41)
[2021-01-27] MEDS: traZODone HCL 100 MG TABLET (FP) PO SCH (22:42)
[2021-01-27] MEDS: LORazepam 2 MG TABLET PO SCH (22:43)
[2021-01-28] MEDS: BUDESONIDE/FORMETEROL FUMARATE 160/4.5 mcg INHALER IH SCH ×3 (01:01→23:54)
[2021-01-28] MEDS: METHOCARBAMOL 500 MG TABLET PO PRN (04:14)
[2021-01-28] MEDS: IBUPROFEN 400 MG TABLET (FP) PO PRN ×2 (04:14→18:23)
[2021-01-28] MEDS: LORazepam 2 MG TABLET PO SCH ×4 (05:49→23:55)
[2021-01-28] MEDS: PRENATAL VITAMINS W/ FOLIC ACID TABLET (FP) PO SCH (10:29)
[2021-01-28 11:01] LABS: HEMATOCRIT 40.6 % (35.4-49); HEMOGLOBIN 14.3 GM/dL (11.7-16.9); MCH 36.1 pg (25.7-33.7); MCHC 35.1 g/dl (32.0-35.9); MEAN CELL VOLUME 102.6 fl (80-96); MEAN PLT VOLUME 8.3 fl (7.5-11.1); PLATELET COUNT 177 10^3/uL (134-434); RBC 3.95 M/mm3 (4.00-5.60); RDW 13.8 % (11.9-15.9); WHITE BLOOD COUNT 6.4 K/mm3 (4.0-10.0)
[2021-01-28 11:20] LABS: ALBUMIN 3.2 g/dl (3.4-5.0); BLOOD UREA NITROGEN 6.8 mg/dL (7-18); CALCIUM 7.5 mg/dL (8.5-10.1)
[2021-01-28 11:24] LABS: CREATININE 0.8 mg/dL (0.55-1.3)
[2021-01-28 11:25] LABS: BILIRUBIN,TOTAL 0.9 mg/dL (0.2-1); TOT PROT 7.3 g/dl (6.4-8.2)
[2021-01-28] MEDS ORDERED: POTASSIUM CHLORIDE TABS 20 MEQ TABLET.ER (FP) PO ONE (12:15)
[2021-01-28] MEDS: hydrOXYzine PAMOATE 25 MG CAPSULE (FP) PO PRN (18:26)
[2021-01-28] MEDS: traZODone HCL 100 MG TABLET (FP) PO SCH (23:54)
[2021-01-28] MEDS: MELATONIN 5 MG TABLETS PO SCH (23:54)
[2021-01-28] MEDS: THIAMINE HCL 100 MG TABLET (FP) PO SCH (23:55)
[2021-01-29] MEDS: LORazepam 1 MG TABLET PO SCH ×4 (05:29→22:58)
[2021-01-29] MEDS: hydrOXYzine PAMOATE 25 MG CAPSULE (FP) PO PRN ×2 (05:31→22:57)
[2021-01-29] MEDS: PRENATAL VITAMINS W/ FOLIC ACID TABLET (FP) PO SCH (10:34)
[2021-01-29] MEDS: METHOCARBAMOL 500 MG TABLET PO PRN ×2 (10:35→22:57)
[2021-01-29] MEDS: BUDESONIDE/FORMETEROL FUMARATE 160/4.5 mcg INHALER IH SCH ×2 (10:35→22:57)
[2021-01-29] MEDS: IBUPROFEN 600 MG TABLET (FP) PO PRN (21:31)
[2021-01-29] MEDS: THIAMINE HCL 100 MG TABLET (FP) PO SCH (22:57)
[2021-01-29] MEDS: traZODone HCL 100 MG TABLET (FP) PO SCH (22:57)
[2021-01-29] MEDS: MELATONIN 5 MG TABLETS PO SCH (22:58)
[2021-01-30] MEDS ORDERED: LORazepam 0.5 MG TABLET PO PRN
[2021-01-30] MEDS: LORazepam 0.5 MG TABLET PO SCH ×4 (06:11→22:32)
[2021-01-30] MEDS: PRENATAL VITAMINS W/ FOLIC ACID TABLET (FP) PO SCH (10:41)
[2021-01-30] MEDS: BUDESONIDE/FORMETEROL FUMARATE 160/4.5 mcg INHALER IH SCH ×2 (10:41→22:36)
[2021-01-30] MEDS: IBUPROFEN 600 MG TABLET (FP) PO PRN ×2 (10:44→22:33)
[2021-01-30] MEDS: MELATONIN 5 MG TABLETS PO SCH (22:32)
[2021-01-30] MEDS: THIAMINE HCL 100 MG TABLET (FP) PO SCH (22:32)
[2021-01-30] MEDS: traZODone HCL 100 MG TABLET (FP) PO SCH (22:32)
[2021-01-30] MEDS: METHOCARBAMOL 500 MG TABLET PO PRN (22:32)
[2021-01-31] MEDS ORDERED: LORazepam 0.5 MG TABLET PO ONE (05:00)
[2021-01-31 06:11] VITALS: TEMP 98
[2021-01-31] MEDS ORDERED: ALBUTEROL SO4 HFA INHALER IH PRN (07:18)
[2021-01-31 09:40] VITALS: BP 140/90; PULSE 95
[2021-01-31] MEDS: PRENATAL VITAMINS W/ FOLIC ACID TABLET (FP) PO SCH (09:45)
[2021-01-31] MEDS: BUDESONIDE/FORMETEROL FUMARATE 160/4.5 mcg INHALER IH SCH (09:46)
== END 2021-01-31 09:20 | disposition home or self-care (01) | DRG 775 ==
LOC: YASAS 12:40 → Y3N 16:31
PROVIDERS: ADMIT Allergy & Immunology; ATTEND Allergy & Immunology
PROC: HZ2ZZZZ Detoxification Services for Substance Abuse Treatment (ICD-10-PCS; principal; 2021-01-27)
DX: F10.230 Alcohol dependence with withdrawal, uncomplicated (principal); F13.20 Sedative, hypnotic or anxiolytic dependence, uncomplicated; F17.210 Nicotine dependence, cigarettes, uncomplicated; F19.282 Other psychoactive substance dependence with psychoactive substance-induced sleep disorder; F19.24 Other psychoactive substance dependence with psychoactive substance-induced mood disorder; F51.05 Insomnia due to other mental disorder; F32.9 Major depressive disorder, single episode, unspecified; J45.909 Unspecified asthma, uncomplicated; K21.9 Gastro-esophageal reflux disease without esophagitis; M25.572 Pain in left ankle and joints of left foot; M54.5 Low back pain; G89.29 Other chronic pain; B18.2 Chronic viral hepatitis C; E66.01 Morbid (severe) obesity due to excess calories; Z68.42 Body mass index [BMI] 45.0-49.9, adult
CPT/HCPCS: 36415; 80053; 84132; 85027; 86780; Q0162

== ENCOUNTER 2021-01-28 20:51 | Emergency (ER) | payer OTHER ==
[2021-01-28 21:31] VITALS: BP 126/77; PULSE 91; TEMP 98.2; BMI 46.4
[2021-01-28] MEDS ORDERED: IBUPROFEN 600 MG TABLET (FP) PO ONE ×2 (22:36→22:52)
[2021-01-28] MEDS ORDERED: LORazepam 2 MG TABLET PO ONE (22:37)
[2021-01-28] MEDS ORDERED: LORazepam 1 MG TABLET ONE (22:53)
[2021-01-29] MEDS ORDERED: LORazepam 2 MG TABLET PO STA (03:23)
[2021-01-29] MEDS ORDERED: LORazepam 1 MG TABLET ONE (03:25)
== END 2021-01-29 03:53 | disposition home or self-care (01) ==
LOC: JER 20:51
DX: M25.572 Pain in left ankle and joints of left foot (principal)
CPT/HCPCS: 73610-TC-LT-FY; 73630-TC-LT; 99283-25

== ENCOUNTER 2022-04-12 11:18 | Inpatient (IN) | payer OTHER ==
[2022-04-12 12:11] VITALS: BMI 36.6
[2022-04-12] MEDS ORDERED: DICYCLOMINE HCL 10 MG CAPSULE PO PRN (12:48)
[2022-04-12] MEDS ORDERED: MAGNESIUM HYDROX 2400MG/30ML ORAL SUSPENSION 30 ML CUP PO PRN (12:48)
[2022-04-12] MEDS ORDERED: ACETAMINOPHEN 325 MG TABLET (FP) PO PRN (12:48)
[2022-04-12] MEDS ORDERED: NALOXONE HCL (KLOXXADO) 8 MG SPRAY NS PRN (12:48)
[2022-04-12] MEDS ORDERED: BENZOCAINE/MENTHOL (CHLORASEPTIC ) LOZENGE MM PRN (12:48)
[2022-04-12] MEDS ORDERED: IBUPROFEN 400 MG TABLET (FP) PO PRN (12:48)
[2022-04-12] MEDS ORDERED: BISMUTH SUBSALICYLATE 524 MG/30 ML PO PRN (12:48)
[2022-04-12] MEDS ORDERED: MAG HYDROX/AL HYDROX/SIMETH 30 ML UNIT-DOSE CUP PO PRN (12:48)
[2022-04-12] MEDS ORDERED: LOPERAMIDE HCL 2 MG CAPSULE PO PRN (12:48)
[2022-04-12] MEDS ORDERED: MAGNESIUM CITRATE 300 ML BOTTLE PO PRN (12:48)
[2022-04-12] MEDS ORDERED: ONDANSETRON *ODT* 4 MG TABLET SL PRN (12:48)
[2022-04-12] MEDS ORDERED: ALBUTEROL SO4 HFA INHALER IH PRN (12:51)
[2022-04-12] MEDS ORDERED: diazePAM 5 MG TABLET PO ONE (13:00)
[2022-04-12] MEDS: PRENATAL VITAMINS W/ FOLIC ACID TABLET (FP) PO SCH (13:42)
[2022-04-12] MEDS: NICOTINE 14 MG/24 HOURS TOPICAL PATCH TD SCH (13:44)
[2022-04-12] MEDS: NICOTINE 10 MG CARTRIDGE (INHALER) IH PRN (17:02)
[2022-04-12] MEDS: hydrOXYzine PAMOATE 25 MG CAPSULE (FP) PO PRN ×2 (17:39→22:00)
[2022-04-12] MEDS: diazePAM 5 MG TABLET PO SCH ×2 (17:40→22:01)
[2022-04-12] MEDS: BUDESONIDE/FORMETEROL FUMARATE 160/4.5 mcg INHALER IH SCH (21:58)
[2022-04-12] MEDS: THIAMINE HCL 100 MG TABLET (FP) PO SCH (22:00)
[2022-04-12] MEDS: METHOCARBAMOL 500 MG TABLET PO PRN (22:00)
[2022-04-12] MEDS: MELATONIN 5 MG TABLETS PO SCH (22:00)
[2022-04-13] MEDS: diazePAM 5 MG TABLET PO PRN (00:37)
[2022-04-13] MEDS: diazePAM 5 MG TABLET PO SCH ×4 (06:23→22:08)
[2022-04-13] MEDS: PRENATAL VITAMINS W/ FOLIC ACID TABLET (FP) PO SCH (10:19)
[2022-04-13] MEDS: BUDESONIDE/FORMETEROL FUMARATE 160/4.5 mcg INHALER IH SCH ×2 (10:20→22:07)
[2022-04-13] MEDS: NICOTINE 14 MG/24 HOURS TOPICAL PATCH TD SCH (10:20)
[2022-04-13 10:55] LABS: HEMATOCRIT 41.7 % (35.4-49); HEMOGLOBIN 14.7 GM/dL (11.7-16.9); MCH 33.2 pg (25.7-33.7); MCHC 35.3 g/dl (32.0-35.9); PLATELET COUNT 115 10^3/uL (134-434); RBC 4.44 M/mm3 (4.00-5.60); RDW 12.7 % (11.9-15.9); WHITE BLOOD COUNT 4.4 K/mm3 (4.0-10.0)
[2022-04-13 11:31] LABS: CALCIUM 8.4 mg/dL (8.5-10.1)
[2022-04-13 11:32] LABS: BLOOD UREA NITROGEN 7.3 mg/dL (7-18)
[2022-04-13 11:34] LABS: CREATININE 0.6 mg/dL (0.55-1.3)
[2022-04-13 11:36] LABS: TOT PROT 6.7 g/dl (6.4-8.2)
[2022-04-13 11:37] LABS: BILIRUBIN,TOTAL 0.9 mg/dL (0.2-1)
[2022-04-13] MEDS ORDERED: POTASSIUM CHLORIDE ORAL LIQUID 20 MEQ/15 ML PO ONE ×2 (14:30→16:15)
[2022-04-13] MEDS: hydrOXYzine PAMOATE 25 MG CAPSULE (FP) PO PRN ×3 (15:52→22:08)
[2022-04-13] MEDS: NICOTINE 10 MG CARTRIDGE (INHALER) IH PRN (15:54)
[2022-04-13] MEDS: METHOCARBAMOL 500 MG TABLET PO PRN (22:08)
[2022-04-13] MEDS: MELATONIN 5 MG TABLETS PO SCH (22:08)
[2022-04-13] MEDS: THIAMINE HCL 100 MG TABLET (FP) PO SCH (22:08)
[2022-04-14] MEDS: diazePAM 5 MG TABLET PO PRN ×2 (00:04→10:26)
[2022-04-14] MEDS: diazePAM 5 MG TABLET PO SCH ×3 (06:29→22:26)
[2022-04-14] MEDS: PRENATAL VITAMINS W/ FOLIC ACID TABLET (FP) PO SCH (10:26)
[2022-04-14] MEDS: BUDESONIDE/FORMETEROL FUMARATE 160/4.5 mcg INHALER IH SCH ×2 (10:26→22:26)
[2022-04-14] MEDS: METHOCARBAMOL 500 MG TABLET PO PRN ×2 (10:27→22:28)
[2022-04-14] MEDS: NICOTINE 14 MG/24 HOURS TOPICAL PATCH TD SCH (10:29)
[2022-04-14] MEDS: THIAMINE HCL 100 MG TABLET (FP) PO SCH (22:26)
[2022-04-14] MEDS: MELATONIN 5 MG TABLETS PO SCH (22:26)
[2022-04-14] MEDS: IBUPROFEN 600 MG TABLET (FP) PO PRN (22:28)
[2022-04-14] MEDS: hydrOXYzine PAMOATE 25 MG CAPSULE (FP) PO PRN (22:29)
[2022-04-15] MEDS: diazePAM 5 MG TABLET PO PRN ×2 (01:00→10:40)
[2022-04-15] MEDS: diazePAM 5 MG TABLET PO SCH ×2 (05:58→17:32)
[2022-04-15] MEDS: BUDESONIDE/FORMETEROL FUMARATE 160/4.5 mcg INHALER IH SCH ×2 (10:40→23:08)
[2022-04-15] MEDS: PRENATAL VITAMINS W/ FOLIC ACID TABLET (FP) PO SCH (10:41)
[2022-04-15] MEDS: hydrOXYzine PAMOATE 25 MG CAPSULE (FP) PO PRN ×3 (10:41→22:31)
[2022-04-15] MEDS: NICOTINE 14 MG/24 HOURS TOPICAL PATCH TD SCH (10:41)
[2022-04-15] MEDS: METHOCARBAMOL 500 MG TABLET PO PRN ×2 (14:51→22:31)
[2022-04-15] MEDS: ACETAMINOPHEN 325 MG TABLET (FP) PO PRN (14:51)
[2022-04-15] MEDS: MELATONIN 5 MG TABLETS PO SCH (22:30)
[2022-04-15] MEDS: THIAMINE HCL 100 MG TABLET (FP) PO SCH (22:31)
[2022-04-15] MEDS: IBUPROFEN 600 MG TABLET (FP) PO PRN (23:09)
[2022-04-16] MEDS: hydrOXYzine PAMOATE 25 MG CAPSULE (FP) PO PRN ×2 (01:52→05:52)
[2022-04-16] MEDS: ACETAMINOPHEN 325 MG TABLET (FP) PO PRN ×2 (05:51→09:28)
[2022-04-16] MEDS ORDERED: diazePAM 5 MG TABLET PO ONE (06:00)
[2022-04-16 09:19] VITALS: BP 147/87; PULSE 99; RESP 16; TEMP 98.2
[2022-04-16] MEDS: PRENATAL VITAMINS W/ FOLIC ACID TABLET (FP) PO SCH (09:27)
[2022-04-16] MEDS: NICOTINE 14 MG/24 HOURS TOPICAL PATCH TD SCH (09:27)
[2022-04-16] MEDS: BUDESONIDE/FORMETEROL FUMARATE 160/4.5 mcg INHALER IH SCH (09:29)
[2022-04-16] MEDS ORDERED: traZODone HCL 100 MG TABLET (FP) PO SCH (22:00)
== END 2022-04-16 12:05 | disposition other institution (70) | DRG 775 ==
LOC: YASAS 11:18 → Y3N 13:01
PROVIDERS: ADMIT Allergy & Immunology; ATTEND Surgery
PROC: HZ2ZZZZ Detoxification Services for Substance Abuse Treatment (ICD-10-PCS; principal; 2022-04-12)
DX: F10.230 Alcohol dependence with withdrawal, uncomplicated (principal); F12.10 Cannabis abuse, uncomplicated; F17.210 Nicotine dependence, cigarettes, uncomplicated; F19.24 Other psychoactive substance dependence with psychoactive substance-induced mood disorder; F51.01 Primary insomnia; F41.9 Anxiety disorder, unspecified; F32.A Depression, unspecified; J45.20 Mild intermittent asthma, uncomplicated; K21.9 Gastro-esophageal reflux disease without esophagitis; M54.50 Low back pain, unspecified; G89.29 Other chronic pain; E66.9 Obesity, unspecified; Z68.36 Body mass index [BMI] 36.0-36.9, adult; Z28.310 Unvaccinated for COVID-19; Z28.9 Immunization not carried out for unspecified reason
CPT/HCPCS: 36415; 80053; 84132; 85027; 86780; 93005; 93010; C9803-CS; Q0162; U0003; U0005

== ENCOUNTER 2022-12-13 11:23 | Inpatient (IN) | payer OTHER ==
[2022-12-13 11:44] VITALS: BMI 45.1
[2022-12-13] MEDS ORDERED: NICOTINE 10 MG CARTRIDGE (INHALER) IH PRN (12:47)
[2022-12-13] MEDS ORDERED: BENZOCAINE/MENTHOL (CHLORASEPTIC ) LOZENGE MM PRN (12:47)
[2022-12-13] MEDS ORDERED: BENZONATATE 200 MG CAPSULE PO PRN (12:47)
[2022-12-13] MEDS ORDERED: POLYETHYLENE GLYCOL (HEALTHYLAX) 3350 17 GM PACKET PO PRN (12:47)
[2022-12-13] MEDS ORDERED: MAGNESIUM HYDROX 2400MG/30ML ORAL SUSPENSION 30 ML CUP PO PRN (12:47)
[2022-12-13] MEDS ORDERED: IBUPROFEN 400 MG TABLET (FP) PO PRN (12:47)
[2022-12-13] MEDS ORDERED: MAG HYDROX/AL HYDROX/SIMETH 30 ML UNIT-DOSE CUP PO PRN (12:47)
[2022-12-13] MEDS ORDERED: BISMUTH SUBSALICYLATE 524 MG/30 ML PO PRN (12:47)
[2022-12-13] MEDS ORDERED: ONDANSETRON *ODT* 4 MG TABLET SL PRN (12:47)
[2022-12-13] MEDS ORDERED: NALOXONE HCL 0.4 MG/ML VIAL IM PRN (12:47)
[2022-12-13] MEDS ORDERED: NALOXONE HCL (KLOXXADO) 8 MG SPRAY NS PRN (12:47)
[2022-12-13] MEDS ORDERED: LOPERAMIDE HCL 2 MG CAPSULE PO PRN (12:47)
[2022-12-13] MEDS ORDERED: DICYCLOMINE HCL 10 MG CAPSULE PO PRN (12:47)
[2022-12-13] MEDS ORDERED: ACETAMINOPHEN 325 MG TABLET (FP) PO PRN (12:47)
[2022-12-13] MEDS ORDERED: guaiFENesin 600 MG TABLET.ER (FP) PO PRN (12:47)
[2022-12-13] MEDS ORDERED: ALBUTEROL SO4 HFA INHALER IH PRN (13:00)
[2022-12-13] MEDS: diazePAM 5 MG TABLET PO PRN ×2 (13:21→20:54)
[2022-12-13] MEDS ORDERED: METHOCARBAMOL 500 MG TABLET ONE (13:48)
[2022-12-13] MEDS: hydrOXYzine PAMOATE 25 MG CAPSULE (FP) PO PRN (14:32)
[2022-12-13] MEDS: diazePAM 5 MG TABLET PO SCH ×2 (17:23→22:22)
[2022-12-13 18:07] LABS: HEMATOCRIT 46.7 % (35.4-49); MCH 30.3 pg (25.7-33.7); MCHC 34.3 g/dl (32.0-35.9); MEAN CELL VOLUME 88.5 fl (80-96); MEAN PLT VOLUME 8.2 fl (7.5-11.1); PLATELET COUNT 233 10^3/uL (134-434); RBC 5.27 M/mm3 (4.00-5.60); RDW 14.5 % (11.9-15.9); WHITE BLOOD COUNT 6.7 K/mm3 (4.0-10.0)
[2022-12-13 18:12] LABS: POTASSIUM 3.4 mmol/L (3.5-5.1)
[2022-12-13 18:16] LABS: ALBUMIN 3.8 g/dl (3.4-5.0); BLOOD UREA NITROGEN 8.7 mg/dL (7-18); CALCIUM 9.5 mg/dL (8.5-10.1)
[2022-12-13 18:19] LABS: CREATININE 0.9 mg/dL (0.55-1.3)
[2022-12-13 18:21] LABS: BILIRUBIN,TOTAL 0.7 mg/dL (0.2-1); TOT PROT 8.4 g/dl (6.4-8.2)
[2022-12-13] MEDS ORDERED: METOPROLOL TARTRATE 25 MG TABLET (FP) PO ONE (21:56)
[2022-12-13] MEDS ORDERED: MELATONIN 5 MG TABLETS PO SCH (22:00)
[2022-12-13] MEDS: BUDESONIDE/FORMETEROL FUMARATE 160/4.5 mcg INHALER IH SCH (22:21)
[2022-12-13] MEDS: THIAMINE HCL 100 MG TABLET (FP) PO SCH (22:22)
[2022-12-14] MEDS: diazePAM 5 MG TABLET PO SCH ×4 (05:17→22:28)
[2022-12-14] MEDS: PRENATAL VITAMINS W/ FOLIC ACID TABLET (FP) PO SCH (10:07)
[2022-12-14] MEDS: BUDESONIDE/FORMETEROL FUMARATE 160/4.5 mcg INHALER IH SCH ×2 (10:07→22:27)
[2022-12-14] MEDS: hydrOXYzine PAMOATE 25 MG CAPSULE (FP) PO PRN ×2 (10:10→18:53)
[2022-12-14] MEDS: METHOCARBAMOL 500 MG TABLET PO PRN ×2 (10:10→18:53)
[2022-12-14] MEDS ORDERED: POTASSIUM CHLORIDE ORAL LIQUID 20 MEQ/15 ML PO ONE (13:06)
[2022-12-14] MEDS: diazePAM 5 MG TABLET PO PRN ×2 (15:08→20:26)
[2022-12-14] MEDS: MELATONIN 5 MG TABLETS PO SCH (22:27)
[2022-12-14] MEDS: POTASSIUM CHLORIDE ORAL LIQUID 20 MEQ/15 ML PO SCH (22:27)
[2022-12-14] MEDS: THIAMINE HCL 100 MG TABLET (FP) PO SCH (22:27)
[2022-12-15] MEDS: IBUPROFEN 600 MG TABLET (FP) PO PRN ×2 (01:59→23:48)
[2022-12-15] MEDS: METHOCARBAMOL 500 MG TABLET PO PRN (01:59)
[2022-12-15] MEDS: diazePAM 5 MG TABLET PO PRN ×3 (02:00→17:31)
[2022-12-15] MEDS: diazePAM 5 MG TABLET PO SCH ×3 (05:31→22:19)
[2022-12-15] MEDS: POTASSIUM CHLORIDE ORAL LIQUID 20 MEQ/15 ML PO SCH ×2 (10:28→22:19)
[2022-12-15] MEDS: PRENATAL VITAMINS W/ FOLIC ACID TABLET (FP) PO SCH (10:28)
[2022-12-15] MEDS: BUDESONIDE/FORMETEROL FUMARATE 160/4.5 mcg INHALER IH SCH ×2 (10:28→22:19)
[2022-12-15 12:30] LABS: POTASSIUM 4.1 mmol/L (3.5-5.1)
[2022-12-15 12:32] LABS: CALCIUM 8.4 mg/dL (8.5-10.1)
[2022-12-15 12:36] LABS: CREATININE 0.7 mg/dL (0.55-1.3)
[2022-12-15 12:37] LABS: TOT PROT 6.4 g/dl (6.4-8.2)
[2022-12-15 12:38] LABS: BILIRUBIN,TOTAL 0.3 mg/dL (0.2-1)
[2022-12-15 12:39] LABS: ALBUMIN 2.9 g/dl (3.4-5.0)
[2022-12-15] MEDS: hydrOXYzine PAMOATE 25 MG CAPSULE (FP) PO PRN (19:26)
[2022-12-15] MEDS: MELATONIN 5 MG TABLETS PO SCH (22:19)
[2022-12-15] MEDS: THIAMINE HCL 100 MG TABLET (FP) PO SCH (22:19)
[2022-12-16] MEDS: diazePAM 5 MG TABLET PO PRN (02:09)
[2022-12-16] MEDS: diazePAM 5 MG TABLET PO SCH ×2 (06:02→17:37)
[2022-12-16] MEDS: hydrOXYzine PAMOATE 25 MG CAPSULE (FP) PO PRN ×2 (06:03→17:37)
[2022-12-16] MEDS: METHOCARBAMOL 500 MG TABLET PO PRN (06:03)
[2022-12-16] MEDS: IBUPROFEN 600 MG TABLET (FP) PO PRN (06:03)
[2022-12-16] MEDS: POTASSIUM CHLORIDE ORAL LIQUID 20 MEQ/15 ML PO SCH (10:31)
[2022-12-16] MEDS: PRENATAL VITAMINS W/ FOLIC ACID TABLET (FP) PO SCH (10:32)
[2022-12-16] MEDS: BUDESONIDE/FORMETEROL FUMARATE 160/4.5 mcg INHALER IH SCH (10:32)
[2022-12-16 17:48] VITALS: BP 92/52; PULSE 91; RESP 18; TEMP 97.7
[2022-12-17] MEDS ORDERED: diazePAM 5 MG TABLET PO ONE (06:00)
== END 2022-12-16 19:15 | disposition home or self-care (01) | DRG 775 ==
LOC: YASAS 11:23 → Y3N 13:09
PROVIDERS: ADMIT Allergy & Immunology; ATTEND Surgery
PROC: HZ2ZZZZ Detoxification Services for Substance Abuse Treatment (ICD-10-PCS; principal; 2022-12-13)
DX: F10.230 Alcohol dependence with withdrawal, uncomplicated (principal); F19.282 Other psychoactive substance dependence with psychoactive substance-induced sleep disorder; F19.24 Other psychoactive substance dependence with psychoactive substance-induced mood disorder; F32.A Depression, unspecified; J45.909 Unspecified asthma, uncomplicated; K21.9 Gastro-esophageal reflux disease without esophagitis; E66.01 Morbid (severe) obesity due to excess calories; Z68.42 Body mass index [BMI] 45.0-49.9, adult; R03.0 Elevated blood-pressure reading, without diagnosis of hypertension; Z56.0 Unemployment, unspecified; Z59.00 Homelessness unspecified; Z28.310 Unvaccinated for COVID-19; Z28.21 Immunization not carried out because of patient refusal
CPT/HCPCS: 36415; 80053; 83036; 85027; 86780; 87635; Q0162

== ENCOUNTER 2023-01-10 10:39 | Inpatient (IN) | payer OTHER ==
[2023-01-10 10:57] VITALS: BMI 45.2
[2023-01-10] MEDS ORDERED: IBUPROFEN 600 MG TABLET (FP) PO PRN (11:19)
[2023-01-10] MEDS ORDERED: POLYETHYLENE GLYCOL (HEALTHYLAX) 3350 17 GM PACKET PO PRN (11:19)
[2023-01-10] MEDS ORDERED: IBUPROFEN 400 MG TABLET (FP) PO PRN (11:19)
[2023-01-10] MEDS ORDERED: guaiFENesin 600 MG TABLET.ER (FP) PO PRN (11:19)
[2023-01-10] MEDS ORDERED: BENZOCAINE/MENTHOL (CHLORASEPTIC ) LOZENGE MM PRN (11:19)
[2023-01-10] MEDS ORDERED: ACETAMINOPHEN 325 MG TABLET (FP) PO PRN (11:19)
[2023-01-10] MEDS ORDERED: LOPERAMIDE HCL 2 MG CAPSULE PO PRN (11:19)
[2023-01-10] MEDS ORDERED: MAGNESIUM HYDROX 2400MG/30ML ORAL SUSPENSION 30 ML CUP PO PRN (11:19)
[2023-01-10] MEDS ORDERED: DICYCLOMINE HCL 10 MG CAPSULE PO PRN (11:19)
[2023-01-10] MEDS ORDERED: BENZONATATE 200 MG CAPSULE PO PRN (11:19)
[2023-01-10] MEDS ORDERED: NALOXONE HCL (KLOXXADO) 8 MG SPRAY NS PRN (11:19)
[2023-01-10] MEDS ORDERED: NALOXONE HCL 0.4 MG/ML VIAL IM PRN (11:19)
[2023-01-10] MEDS ORDERED: BISMUTH SUBSALICYLATE 524 MG/30 ML PO PRN (11:19)
[2023-01-10] MEDS ORDERED: diazePAM 5 MG TABLET PO PRN (11:23)
[2023-01-10] MEDS ORDERED: PRENATAL VITAMINS W/ FOLIC ACID TABLET (FP) PO ONE (11:57)
[2023-01-10] MEDS ORDERED: diazePAM 5 MG TABLET ONE (11:57)
[2023-01-10] MEDS ORDERED: amLODIPine BESYLATE 5 MG TABLET (FP) ONE (11:57)
[2023-01-10] MEDS: amLODIPine BESYLATE 5 MG TABLET (FP) PO SCH (12:00)
[2023-01-10] MEDS ORDERED: diazePAM 5 MG TABLET PO SCH (12:00)
[2023-01-10] MEDS: PRENATAL VITAMINS W/ FOLIC ACID TABLET (FP) PO SCH (12:00)
[2023-01-10] MEDS: ONDANSETRON *ODT* 4 MG TABLET SL PRN (12:41)
[2023-01-10] MEDS: hydrOXYzine PAMOATE 25 MG CAPSULE (FP) PO PRN (14:09)
[2023-01-10] MEDS ORDERED: ONDANSETRON 4 MG/2 ML VIAL IM PRN (14:18)
[2023-01-10] MEDS: METHOCARBAMOL 500 MG TABLET PO PRN (17:18)
[2023-01-10] MEDS: diazePAM 5 MG TABLET PO PRN (19:14)
[2023-01-10] MEDS: diazePAM 5 MG TABLET PO SCH (22:01)
[2023-01-10] MEDS: THIAMINE HCL 100 MG TABLET (FP) PO SCH (22:03)
[2023-01-10] MEDS: MELATONIN 5 MG TABLETS PO SCH (22:03)
[2023-01-11] MEDS: diazePAM 5 MG TABLET PO PRN ×2 (01:15→17:23)
[2023-01-11] MEDS: MAG HYDROX/AL HYDROX/SIMETH 30 ML UNIT-DOSE CUP PO PRN (03:55)
[2023-01-11] MEDS: diazePAM 5 MG TABLET PO SCH ×4 (05:12→22:09)
[2023-01-11] MEDS: METHOCARBAMOL 500 MG TABLET PO PRN (05:13)
[2023-01-11] MEDS: hydrOXYzine PAMOATE 25 MG CAPSULE (FP) PO PRN (05:13)
[2023-01-11] MEDS: amLODIPine BESYLATE 5 MG TABLET (FP) PO SCH (10:36)
[2023-01-11] MEDS: PRENATAL VITAMINS W/ FOLIC ACID TABLET (FP) PO SCH (10:36)
[2023-01-11 11:31] LABS: HEMATOCRIT 47.1 % (35.4-49); HEMOGLOBIN 15.9 GM/dL (11.7-16.9); MCH 30.8 pg (25.7-33.7); MCHC 33.8 g/dl (32.0-35.9); MEAN CELL VOLUME 91.2 fl (80-96); PLATELET COUNT 228 10^3/uL (134-434); RBC 5.17 M/mm3 (4.00-5.60); RDW 14.1 % (11.9-15.9); WHITE BLOOD COUNT 5.2 K/mm3 (4.0-10.0)
[2023-01-11 11:34] LABS: BLOOD UREA NITROGEN 7.3 mg/dL (7-18)
[2023-01-11 11:36] LABS: ALBUMIN 3.8 g/dl (3.4-5.0)
[2023-01-11 11:39] LABS: TOT PROT 8.1 g/dl (6.4-8.2)
[2023-01-11] MEDS ORDERED: POTASSIUM CHLORIDE ORAL LIQUID 20 MEQ/15 ML PO ONE ×2 (11:39→17:00)
[2023-01-11 11:42] LABS: BILIRUBIN,TOTAL 0.4 mg/dL (0.2-1); CALCIUM 8.5 mg/dL (8.5-10.1); CREATININE 0.8 mg/dL (0.55-1.3)
[2023-01-11] MEDS: LACTULOSE 20 GM/30 ML UDC (FOR ORAL USE ONLY) PO SCH ×3 (13:03→22:10)
[2023-01-11] MEDS: SERTRALINE HCL 50 MG TABLET (FP) PO SCH (14:40)
[2023-01-11] MEDS: ARIPiprazole 10 MG TABLET PO SCH (15:19)
[2023-01-11] MEDS: GABAPENTIN 100 MG CAPSULE PO SCH ×2 (15:19→22:09)
[2023-01-11] MEDS ORDERED: traZODone HCL 50 MG TABLET (FP) PO SCH (22:00)
[2023-01-11] MEDS: THIAMINE HCL 100 MG TABLET (FP) PO SCH (22:09)
[2023-01-11] MEDS: MELATONIN 5 MG TABLETS PO SCH (22:48)
[2023-01-12] MEDS: GABAPENTIN 100 MG CAPSULE PO SCH (05:22)
[2023-01-12] MEDS ORDERED: diazePAM 5 MG TABLET PO SCH (06:00)
[2023-01-12] MEDS ORDERED: BUDESONIDE/FORMETEROL FUMARATE 160/4.5 mcg INHALER IH SCH (10:00)
[2023-01-12] MEDS: SERTRALINE HCL 50 MG TABLET (FP) PO SCH (10:28)
[2023-01-12] MEDS: hydrOXYzine PAMOATE 25 MG CAPSULE (FP) PO PRN (10:28)
[2023-01-12] MEDS: ARIPiprazole 10 MG TABLET PO SCH (10:28)
[2023-01-12] MEDS: PRENATAL VITAMINS W/ FOLIC ACID TABLET (FP) PO SCH (10:28)
[2023-01-12] MEDS: amLODIPine BESYLATE 5 MG TABLET (FP) PO SCH (10:28)
[2023-01-12] MEDS: LACTULOSE 20 GM/30 ML UDC (FOR ORAL USE ONLY) PO SCH (10:29)
[2023-01-12] MEDS: MAG HYDROX/AL HYDROX/SIMETH 30 ML UNIT-DOSE CUP PO PRN (12:16)
[2023-01-12] MEDS: ONDANSETRON *ODT* 4 MG TABLET SL PRN (12:17)
[2023-01-12 12:52] VITALS: BP 147/97; PULSE 111; RESP 18; TEMP 97.5
[2023-01-12] MEDS ORDERED: ALBUTEROL SO4 HFA INHALER IH PRN (13:01)
[2023-01-13] MEDS ORDERED: diazePAM 5 MG TABLET PO SCH (06:00)
[2023-01-14] MEDS ORDERED: diazePAM 5 MG TABLET PO ONE (06:00)
== END 2023-01-12 13:55 | disposition left against medical advice (07) | DRG 770 ==
LOC: YASAS 10:39 → Y6N 11:31
PROVIDERS: ADMIT Allergy & Immunology; ATTEND Allergy & Immunology
PROC: HZ2ZZZZ Detoxification Services for Substance Abuse Treatment (ICD-10-PCS; principal; 2023-01-10)
DX: F10.230 Alcohol dependence with withdrawal, uncomplicated (principal); F10.282 Alcohol dependence with alcohol-induced sleep disorder; F10.280 Alcohol dependence with alcohol-induced anxiety disorder; F10.24 Alcohol dependence with alcohol-induced mood disorder; F31.9 Bipolar disorder, unspecified; F19.282 Other psychoactive substance dependence with psychoactive substance-induced sleep disorder; F19.24 Other psychoactive substance dependence with psychoactive substance-induced mood disorder; F51.05 Insomnia due to other mental disorder; E87.6 Hypokalemia; E72.20 Disorder of urea cycle metabolism, unspecified; J45.909 Unspecified asthma, uncomplicated; K21.9 Gastro-esophageal reflux disease without esophagitis; M54.50 Low back pain, unspecified; E66.01 Morbid (severe) obesity due to excess calories; Z68.42 Body mass index [BMI] 45.0-49.9, adult; Z87.891 Personal history of nicotine dependence
CPT/HCPCS: 36415; 80053; 82140; 84132; 85027; 86780; 87635; 87811; 93005; 93010; Q0162

== ENCOUNTER 2023-02-17 10:14 | Inpatient (IN) | payer OTHER ==
[2023-02-17 10:59] VITALS: BMI 44.9
[2023-02-17] MEDS ORDERED: MAGNESIUM HYDROX 2400MG/30ML ORAL SUSPENSION 30 ML CUP PO PRN (11:22)
[2023-02-17] MEDS ORDERED: NALOXONE HCL 0.4 MG/ML VIAL IM PRN (11:22)
[2023-02-17] MEDS ORDERED: NALOXONE HCL (KLOXXADO) 8 MG SPRAY NS PRN (11:22)
[2023-02-17] MEDS ORDERED: BENZOCAINE/MENTHOL (CHLORASEPTIC ) LOZENGE MM PRN (11:22)
[2023-02-17] MEDS ORDERED: IBUPROFEN 400 MG TABLET (FP) PO PRN (11:22)
[2023-02-17] MEDS ORDERED: MAG HYDROX/AL HYDROX/SIMETH 30 ML UNIT-DOSE CUP PO PRN (11:22)
[2023-02-17] MEDS ORDERED: BENZONATATE 200 MG CAPSULE PO PRN (11:22)
[2023-02-17] MEDS ORDERED: LOPERAMIDE HCL 2 MG CAPSULE PO PRN (11:22)
[2023-02-17] MEDS ORDERED: POLYETHYLENE GLYCOL (HEALTHYLAX) 3350 17 GM PACKET PO PRN (11:22)
[2023-02-17] MEDS ORDERED: DICYCLOMINE HCL 10 MG CAPSULE PO PRN (11:22)
[2023-02-17] MEDS ORDERED: ACETAMINOPHEN 325 MG TABLET (FP) PO PRN (11:22)
[2023-02-17] MEDS ORDERED: LORazepam 1 MG TABLET PO PRN (11:22)
[2023-02-17] MEDS ORDERED: guaiFENesin 600 MG TABLET.ER (FP) PO PRN (11:22)
[2023-02-17] MEDS ORDERED: ONDANSETRON *ODT* 4 MG TABLET SL PRN (11:22)
[2023-02-17] MEDS ORDERED: IBUPROFEN 600 MG TABLET (FP) PO PRN (11:22)
[2023-02-17] MEDS ORDERED: BISMUTH SUBSALICYLATE 524 MG/30 ML PO PRN (11:22)
[2023-02-17] MEDS ORDERED: PRENATAL VITAMINS W/ FOLIC ACID TABLET (FP) PO ONE (12:08)
[2023-02-17] MEDS: PRENATAL VITAMINS W/ FOLIC ACID TABLET (FP) PO SCH (12:10)
[2023-02-17] MEDS: METHOCARBAMOL 500 MG TABLET PO PRN (12:26)
[2023-02-17] MEDS: hydrOXYzine PAMOATE 25 MG CAPSULE (FP) PO PRN (12:26)
[2023-02-17] MEDS: LORazepam 2 MG TABLET PO SCH ×2 (16:59→22:29)
[2023-02-17 17:42] LABS: POTASSIUM 3.3 mmol/L (3.5-5.1)
[2023-02-17 17:44] LABS: HEMATOCRIT 43.4 % (35.4-49); HEMOGLOBIN 15.1 GM/dL (11.7-16.9); MCH 31.1 pg (25.7-33.7); MCHC 34.9 g/dl (32.0-35.9); MEAN PLT VOLUME 7.6 fl (7.5-11.1); PLATELET COUNT 203 10^3/uL (134-434); RBC 4.88 M/mm3 (4.00-5.60); RDW 14.2 % (11.9-15.9); WHITE BLOOD COUNT 6.9 K/mm3 (4.0-10.0)
[2023-02-17 17:45] LABS: ALBUMIN 3.2 g/dl (3.4-5.0); BLOOD UREA NITROGEN 3.3 mg/dL (7-18)
[2023-02-17 17:49] LABS: CREATININE 0.9 mg/dL (0.55-1.3)
[2023-02-17 17:51] LABS: BILIRUBIN,TOTAL 0.6 mg/dL (0.2-1); TOT PROT 6.9 g/dl (6.4-8.2)
[2023-02-17] MEDS ORDERED: MELATONIN 5 MG TABLETS PO SCH (22:00)
[2023-02-17] MEDS: THIAMINE HCL 100 MG TABLET (FP) PO SCH (22:29)
[2023-02-17] MEDS: BUDESONIDE/FORMETEROL FUMARATE 160/4.5 mcg INHALER IH SCH (22:32)
[2023-02-18] MEDS: LORazepam 2 MG TABLET PO SCH ×4 (05:37→22:11)
[2023-02-18] MEDS ORDERED: POTASSIUM CHLORIDE ORAL LIQUID 20 MEQ/15 ML PO ONE (08:35)
[2023-02-18] MEDS: hydrOXYzine PAMOATE 25 MG CAPSULE (FP) PO PRN (10:37)
[2023-02-18] MEDS: PRENATAL VITAMINS W/ FOLIC ACID TABLET (FP) PO SCH (10:37)
[2023-02-18] MEDS: METHOCARBAMOL 500 MG TABLET PO PRN (10:37)
[2023-02-18] MEDS: BUDESONIDE/FORMETEROL FUMARATE 160/4.5 mcg INHALER IH SCH ×2 (10:38→22:12)
[2023-02-18] MEDS: POTASSIUM CHLORIDE ORAL LIQUID 20 MEQ/15 ML PO SCH ×2 (10:39→22:11)
[2023-02-18] MEDS: LACTULOSE 20 GM/30 ML UDC (FOR ORAL USE ONLY) PO SCH ×2 (13:05→22:12)
[2023-02-18 21:12] VITALS: RESP 18
[2023-02-18] MEDS ORDERED: traZODone HCL 50 MG TABLET (FP) PO SCH (22:00)
[2023-02-18] MEDS: THIAMINE HCL 100 MG TABLET (FP) PO SCH (22:11)
[2023-02-18] MEDS: GABAPENTIN 100 MG CAPSULE PO SCH (22:11)
[2023-02-19] MEDS: hydrOXYzine PAMOATE 25 MG CAPSULE (FP) PO PRN ×2 (01:43→10:30)
[2023-02-19] MEDS: METHOCARBAMOL 500 MG TABLET PO PRN ×2 (01:43→10:30)
[2023-02-19] MEDS: GABAPENTIN 100 MG CAPSULE PO SCH (05:34)
[2023-02-19] MEDS: LACTULOSE 20 GM/30 ML UDC (FOR ORAL USE ONLY) PO SCH (05:34)
[2023-02-19] MEDS: LORazepam 1 MG TABLET PO SCH ×2 (05:35→10:30)
[2023-02-19 06:44] VITALS: BP 102/64; PULSE 90; TEMP 97.7
[2023-02-19 09:21] LABS: POTASSIUM 3.5 mmol/L (3.5-5.1)
[2023-02-19 09:26] LABS: CALCIUM 7.9 mg/dL (8.5-10.1)
[2023-02-19 09:27] LABS: BLOOD UREA NITROGEN 10.4 mg/dL (7-18)
[2023-02-19 09:30] LABS: CREATININE 0.9 mg/dL (0.55-1.3)
[2023-02-19] MEDS ORDERED: ARIPiprazole 10 MG TABLET PO SCH (10:00)
[2023-02-19] MEDS ORDERED: SERTRALINE HCL 50 MG TABLET (FP) PO SCH (10:00)
[2023-02-19] MEDS: BUDESONIDE/FORMETEROL FUMARATE 160/4.5 mcg INHALER IH SCH (10:30)
[2023-02-19] MEDS: PRENATAL VITAMINS W/ FOLIC ACID TABLET (FP) PO SCH (10:30)
[2023-02-20] MEDS ORDERED: LORazepam 0.5 MG TABLET PO PRN
[2023-02-20] MEDS ORDERED: LORazepam 0.5 MG TABLET PO SCH (05:00)
[2023-02-21] MEDS ORDERED: LORazepam 0.5 MG TABLET PO ONE (05:00)
== END 2023-02-19 11:45 | disposition left against medical advice (07) | DRG 770 ==
LOC: YASAS 10:14 → Y6N 11:47
PROVIDERS: ADMIT Allergy & Immunology; ATTEND Surgery
PROC: HZ2ZZZZ Detoxification Services for Substance Abuse Treatment (ICD-10-PCS; principal; 2023-02-17)
DX: F10.230 Alcohol dependence with withdrawal, uncomplicated (principal); F10.280 Alcohol dependence with alcohol-induced anxiety disorder; F10.282 Alcohol dependence with alcohol-induced sleep disorder; F10.24 Alcohol dependence with alcohol-induced mood disorder; F31.9 Bipolar disorder, unspecified; F51.05 Insomnia due to other mental disorder; E72.20 Disorder of urea cycle metabolism, unspecified; E87.6 Hypokalemia; J45.909 Unspecified asthma, uncomplicated; F12.20 Cannabis dependence, uncomplicated; K21.9 Gastro-esophageal reflux disease without esophagitis; M54.50 Low back pain, unspecified; G89.29 Other chronic pain; R74.01 Elevation of levels of liver transaminase levels; E66.01 Morbid (severe) obesity due to excess calories; Z68.41 Body mass index [BMI] 40.0-44.9, adult; Z28.310 Unvaccinated for COVID-19; Z28.21 Immunization not carried out because of patient refusal
CPT/HCPCS: 36415; 80048; 80053; 82140; 85027; 86780; 87635; 87811